=== PATIENT | male | born 1955 | race Caucasian/White ===

== ENCOUNTER 2018-09-08 05:24 | Day surgery (SDC) | payer OTHER ==
[~2018-09-08] VITALS: Ht 177.8 cm; Wt 94.5 kg
[2018-09-08 06:22] LABS: ANION GAP 11.3 mmol/L (8-16); CALCIUM 8.4 mg/dL (8.5-10.1); CARBON DIOXIDE 28.2 mmol/L (21.0-32.0); CREATININE - SERUM 1.8 mg/dL (0.6-1.3); POTASSIUM - SERUM 4.5 mmol/L (3.5-5.1)
[2018-09-08 06:42] LABS: HEMATOCRIT 41.7 % (42.0-54.0); HEMOGLOBIN 14.3 g/dL (13.5-17.5); LYMPHOCYTES 12.8 % (15-50); MCHC 34.3 g/dL (31.0-37.0); MCV 90.5 fL (80.0-100.0); MEAN PLATELET VOLUME 12.7 fL (7.4-10.4); NEUTROPHILS 80.8 % (40-80); PLATELET COUNT 132 10x3/uL (130-400); RBC 4.61 10x6/uL (4.20-6.10); RDW 17.3 % (11.5-14.5); WBC 4.7 10x3/uL (4.8-10.8)
[2018-09-08] MEDS ORDERED: ACETAMINOPHEN325 MG PO (07:17)
[2018-09-08] MEDS ORDERED: ADVAIR HFA 230-12 GM INH (07:18)
[2018-09-08] MEDS ORDERED: PACERONE200 MG PO (07:19)
[2018-09-08] MEDS ORDERED: ASPIRIN81 MG PO (07:19)
[2018-09-08] MEDS ORDERED: ALBUTEROL0.63 MG/3 INH (07:19)
[2018-09-08] MEDS ORDERED: PLAVIX75 MG PO (07:19)
[2018-09-08] MEDS ORDERED: LISINOPRIL20 MG PO (07:20)
[2018-09-08] MEDS ORDERED: COLACE100 MG PO (07:20)
[2018-09-08] MEDS ORDERED: LASIX40 MG PO (07:20)
[2018-09-08] MEDS ORDERED: GLUCOPHAGE500 MG PO (07:20)
[2018-09-08] MEDS ORDERED: SPIRIVA18 MCG INH (07:21)
[2018-09-08] MEDS ORDERED: FLOMAX0.4 MG PO (07:21)
[2018-09-08] MEDS ORDERED: EFFEXOR50 MG PO (07:21)
[2018-09-08] MEDS ORDERED: COUMADIN3 MG PO (07:21)
[2018-09-08] MEDS ORDERED: COUMADIN4 MG PO (07:22)
[2018-09-08 07:39] VITALS: BP 157/76; Ht 177.8 cm; Wt 94.5 kg
--- NOTE | 2018-09-08 11:18 | NUR ---
IV ERMOVED PT HAS A STOREY CATHETER
--- NOTE | 2018-09-11 11:23 | OP ---
PATIENT NAME: NATALIA BARLOW MEDICAL RECORD: [id number] :51 LOCATION:D.OPS ADMISSION DATE: SURGEON: HUMBERTO FREIRE MD DATE OF OPERATION: 09/08/2018 PREOPERATIVE DIAGNOSIS: Thickened esophagus by CT scan. POSTOPERATIVE DIAGNOSES: 1. 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 2. Diffuse (pangastritis) gastritis. 3. 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 4. No identifiable source for the thickening of the CT scan as seen back in July. PROCEDURES: 1. Esophagogastroduodenoscopy with biopsies. 2. Duodenal polypectomy utilizing the argon plasma quick sketch artist. SURGEON: Humberto Freire MD SLP: None. BLOOD LOSS: Minimal. ANESTHESIA: General. COMPLICATIONS: None. The risks, possible complications and alternatives to the procedure were explained to the patient. He elects to proceed. ENDOSCOPIC COURSE: The patient was conveyed to endoscopy suite electively on 09/08/2018. IV sedation was induced by the anesthesia staff. A bite block was inserted. A gastroscope was inserted into the mouth. It was advanced easily into the hypopharynx. The esophagus was easily intubated as were the stomach and duodenum. Upon withdrawal, retroflexed and angulus views were obtained. Antral biopsies were obtained. Distal esophageal biopsies were obtained to rule out Pitt's. Mid esophageal biopsies were obtained to rule out eosinophilic esophagitis. I then advanced into the duodenal bulb. Cold endoscopic biopsies were obtained of the duodenal bulbar polyp. I then ablated the polypoid base utilizing the argon plasma quick sketch artist with the esophageal mode in the forced setting. The endoscope was then withdrawn under direct vision. I noted no evidence of esophageal varices. No evidence of esophageal masses. The patient can be conveyed back to the residential. There is no need for him to follow up with me in the office unless he develops a complication related to this operative procedure. He can restart his anticoagulation in 2 days. I will plan for his next upper endoscopy to take place in 1 year due to the duodenal bulbar polyp. TRANSINT:[id number] Voice Confirmation ID: [id number] DOCUMENT ID: [id number] OPERATIVE REPORT [id number] NATALIA BARLOW ROBERT MD at 1123 CC: [id number] DICTATION DATE: 09/08/18 1006 VENDOR RELATIONSHIP MANAGER: 09/08/18 1109 [facility] 09/08/18 [facility] [address] [place] [address]
--- NOTE | 2018-09-11 15:02 | HP ---
PATIENT: NATALIA BARLOW MEDICAL RECORD: [id number] ACCOUNT: [id number] LOCATION:D.OPS : 51 ADMISSION DATE: 09/08/18 PCP: TRINITY CARRANZA MD HISTORY AND PHYSICAL EXAMINATION CHIEF COMPLAINT: Thickening of the esophageal wall. HISTORY OF PRESENT ILLNESS: The patient is on oxygen. He was found to have multiple medical problems and it was felt that his procedure should be done in the hospital or at the outpatient surgery center. The patient complains a lot of bloating as well as gas. A CT on 08/03/2018 revealed diffuse thickening of the wall of the esophagus. He is to undergo EGD to rule out an esophageal malignancy or Pitt's. PAST MEDICAL AND SURGICAL HISTORY: COPD. He is on 2 liters of oxygen, sleep apnea, hypertension, noninsulin-dependent diabetes mellitus, history of kidney infections, history of pilonidal cystectomy, history of coronary stents 6 months ago. HOME MEDICATIONS: Please see the nursing list. He has been off Plavix for 3 days. ALLERGIES: No known drug allergies. PHYSICAL EXAMINATION: GENERAL: The patient does not appear acutely ill. He does appear chronically ill. VITAL SIGNS: Reviewed. EARS: External ears appear normal. EYES: Extraocular movements are intact. NECK: Trachea is midline. CHEST: No intercostal retractions. PULMONARY: Nonlabored, no stridor. ABDOMEN: No peritonitis. IMPRESSION: Thickened esophageal wall by CT scan. PLAN: EGD. TRANSINT:[id number] Voice Confirmation ID: [id number] DOCUMENT ID: [id number] BLANK FREIRE MD at 1502 CC: DEREK RONQUILLO [id number] DICTATION DATE: 09/08/18 0927 DIRECTOR PART: 09/08/18 1001 [facility] 09/08/18 [facility] [address] [place] [address]
== END 2018-09-08 11:27 ==
LOC: D.OPS 05:24
PROVIDERS: Anesthesiology; ATTEND Surgery
DX: K22.8 Other specified diseases of esophagus (principal); K31.7 Polyp of stomach and duodenum; K29.70 Gastritis, unspecified, without bleeding; Z01.812 Encounter for preprocedural laboratory examination

== ENCOUNTER 2019-02-18 05:24 | Day surgery (SDC) | payer OTHER ==
[~2019-02-18] VITALS: Ht 177.8 cm; Wt 94.8 kg
[~2019-02-18 05:24] MED LIST: ACETAMINOPHEN325 MG PO; ADVAIR HFA 230-12 GM INH; ALBUTEROL0.63 MG/3 INH; ASPIRIN81 MG PO; COLACE100 MG PO; COUMADIN3 MG PO; COUMADIN4 MG PO; EFFEXOR50 MG PO; FLOMAX0.4 MG PO; GLUCOPHAGE500 MG PO; LASIX40 MG PO; LISINOPRIL20 MG PO; PACERONE200 MG PO; PLAVIX75 MG PO; SPIRIVA18 MCG INH
[2019-02-18 06:10] LABS: HEMATOCRIT 36.5 % (42.0-54.0); HEMOGLOBIN 11.4 g/dL (13.5-17.5); MCH 29.8 pg (26.0-34.0); MCHC 31.2 g/dL (31.0-37.0); MCV 95.5 fL (80.0-100.0); MEAN PLATELET VOLUME 9.3 fL (7.4-10.4); RBC 3.82 10x6/uL (4.20-6.10); RDW 14.8 % (11.5-14.5); WBC 7.5 10x3/uL (4.8-10.8)
[2019-02-18 06:15] LABS: ANION GAP 7.3 mmol/L (8-16); CALCIUM 8.3 mg/dL (8.5-10.1); CARBON DIOXIDE 37.3 mmol/L (21.0-32.0); CREATININE - SERUM 2.2 mg/dL (0.6-1.3); POTASSIUM - SERUM 3.6 mmol/L (3.5-5.1)
[2019-02-18 07:17] LABS: INR 0.99 (0.85-1.17); PROTIME 12.6 SECONDS (11.6-15.0)
[2019-02-18 07:47] VITALS: BP 145/75; Ht 177.8 cm; Wt 94.8 kg
--- NOTE | 2019-02-18 11:12 | OP ---
PATIENT NAME: NATALIA BARLOW MEDICAL RECORD: [id number] :51 LOCATION:D.OPS ADMISSION DATE: SURGEON: HUMBERTO VELÁZQUEZ MD DATE OF OPERATION: 02/18/2019 SURGEON: Humberto Velázquez MD ANESTHESIA: TIVA by Brian Pride CRNA PROCEDURE: Cystoscopy and bilateral retrograde pyelogram. FINDINGS: Obstructive lateral lobes of the prostate. Vascular prostate. Single ureteral orifices bilaterally with no bladder tumors. Bladder mucosal vascularity is noted. On bilateral retrograde pyelograms, there are no filling defects and no hydronephrosis. ESTIMATED BLOOD LOSS: None. CLINICAL HISTORY: This is a 63-year-old male, who is a prisoner. He is on warfarin for atrial fibrillation. He has noticed episodes of gross hematuria for the past 4 months. He does have obstructive voiding symptoms including urinary urgency, frequency, nocturia, hesitancy, and a slow urinary flow. He comes today for cystoscopy and bilateral retrograde pyelograms as part of his workup. He is not allergic to any medications. He was given Ancef watch dial stoner to the OR. DESCRIPTION OF PROCEDURE: The patient was given IV sedation. He was then placed into lithotomy position and prepped and draped. A 21-Israeli cystoscope with 30-degree lens was used for visualization. The lateral lobes are obstructive and the prostatic urethra is vascular. There is no median lobe. Going into the bladder, the bladder is vascular, but there are no tumors visible. An open-ended ureteral catheter was placed into the right ureteral orifice and diluted contrast was injected for a retrograde pyelogram. The same procedure was performed on the left side. No tumors, filling defects, or hydronephrosis was seen. The bladder was emptied through the sheath and then the scope was removed. He will be returning to snf and the results will be conveyed by the snf doctor. TRANSINT:[id number] Voice Confirmation ID: [id number] DOCUMENT ID: [id number] HUMBERTO VELÁZQUEZ MD at 1112 CC: [id number] DICTATION DATE: 02/18/19 0939 WARRANTY MANAGER: 02/18/19 1040 [facility] 02/18/19 [place] [address]
== END 2019-02-18 10:43 | disposition other institution (70) ==
LOC: D.OPS 05:24
PROVIDERS: Anesthesiology; ATTEND Urology
DX: N40.3 Nodular prostate with lower urinary tract symptoms (principal)

== ENCOUNTER 2019-06-03 09:59 | Inpatient (IN) | payer MEDICAID ==
[~2019-06-03] VITALS: Ht 177.8 cm; Wt 107.0 kg
[2019-06-03] VITALS (29 sets, daily range): BP systolic 96–125; BP diastolic 34–86; BMI 31.3
[2019-06-03 10:33] LABS: BASOPHILS 0.3 % (0-2); EOSINOPHILS 7.7 % (0-7); IMMATURE GRANULOCYTES 0.2 % (0-5); LYMPHOCYTES 18.9 % (15-50); MCH 26.4 pg (26.0-34.0); MCHC 29.4 g/dL (31.0-37.0); MCV 89.6 fL (80.0-100.0); MEAN PLATELET VOLUME 8.6 fL (7.4-10.4); MONOCYTES 9.1 % (2-11); NEUTROPHILS 63.8 % (40-80); RBC 2.01 10x6/uL (4.20-6.10); RDW 15.3 % (11.5-14.5); WBC 5.8 10x3/uL (4.8-10.8)
[2019-06-03 10:41] LABS: ANION GAP 13.4 mmol/L (8-16); CARBON DIOXIDE 27.6 mmol/L (21.0-32.0); CREATININE - SERUM 3.7 mg/dL (0.6-1.3); HEMOGLOBIN 5.3 g/dL (13.5-17.5); PLATELET COUNT 216 10x3/uL (130-400)
--- NOTE | 2019-06-03 10:41 | NUR ---
CRITICAL HEMOGLOBIN OF 5.3 RECEIVED FROM [facility]. REPORTED TO DR. NERI
[2019-06-03 10:42] LABS: APTT 44.5 SECONDS (22.8-39.4); INR 1.93 (0.85-1.17); PROTIME 21.8 SECONDS (11.6-15.0)
[2019-06-03 10:48] LABS: ALBUMIN 3.3 g/dL (3.4-5.0); BILIRUBIN - TOTAL 0.47 mg/dL (0.2-1.3); PROTEIN - SERUM 6.8 g/dL (6.4-8.2)
--- NOTE | 2019-06-03 11:42 | NUR ---
ROCEPHIN STOPPED AT 1142
--- NOTE | 2019-06-03 12:00 | NUR ---
UNIT OF A+ BLOOD STARTED. REFER TO INFUSION RECORD
--- NOTE | 2019-06-03 13:17 | NUR ---
ARRIVED TO UNIT AROUND 1247 VIA STRETCHER FROM ER. CONNECTED TO DAIRY PRODUCTS MAKER. UNIT OF BLOOOD INFUSING ON ARRIVAL. FINISHED AT 1310. 1314 2ND UNIT PRBC'S INITIATED. OFFICER AT BEDSIDE. PT ON 2L OF O2 VIA NC. WILL CONTINUE TO MONITOR.
--- NOTE | 2019-06-03 14:25 | NUR ---
UNIT OF FFP INITIATED AT THIS TIME.
[2019-06-03 15:48] LABS: HEMATOCRIT 22.7 % (42.0-54.0); HEMOGLOBIN 6.9 g/dL (13.5-17.5)
--- NOTE | 2019-06-03 15:58 | NUR ---
H&H REPORTED TO DR. JUDD. ORDERED 2 UNITS PRBC'S TO BE TRANSFUSED AND TO TRANSFUSE 2UNITS FFP THAT HAD PREVIOUSLY BEEN ORDERED.
--- NOTE | 2019-06-03 16:17 | NUR ---
2ND UNIT OF FFP INFUSING AT THIS TIME.
--- NOTE | 2019-06-03 16:34 | NUR ---
THIRD UNIT FFP INFUSING AT THIS TIME.
[2019-06-03 17:24] LABS: BILIRUBIN NEGATIVE (NEGATIVE); GLUCOSE NEGATIVE (NEGATIVE); KETONE NEGATIVE (NEGATIVE); NITRITE NEGATIVE (NEGATIVE); SPECIFIC GRAVITY 1.015 (1.005-1.020); UROBILINOGEN NORMAL (NORMAL); WHITE CELLS - URINE NSEEN /hpf (NEGATIVE)
--- NOTE | 2019-06-03 19:20 | MORECARE ---
CASE MANAGEMENT DISCHARGE SUMMARY PATIENT: NATALIA BARLOW UNIT: [id number] ADM DATE: 06/03/19 AGE: 63 : 53 SEX: M ROOM/BED: D.[facility] AUTHOR: LAVELL CORDOBA PHYSICIAN: REFERRING PHYSICIAN: LATANYA JUDD DO DATE OF SERVICE: 06/03/19 Discharge Plan Patient Name: NATALIA BARLOW [facility] [facility] 1955 Planned Disposition: Court\Law Enforcement Anticipated Discharge Date: Discharge Date: Expected LOS: Initial Reviewer: [email or web address] Initial Review Date: 06/03/2019 Generated: 06/03/19 8:19 pm Patient Name: NATALIA BARLOW Page [phone] at 1920 All edits/amendments must be made on the electronic document DICTATION DATE: 06/03/191918 OCCUPATIONAL PHYSICIAN: RUTHIE 06/03/191918 RPT#: [id number] DC DATE: STATUS: ADM IN [facility] [address] [place] [address] END OF REPORT
--- NOTE | 2019-06-03 19:26 | MORECARE ---
CASE MANAGEMENT DISCHARGE SUMMARY PATIENT: NATALIA BARLOW UNIT: [id number] ADM DATE: 06/03/19 AGE: 63 : 53 SEX: M ROOM/BED: D.[facility] AUTHOR: LAVELL CORDOBA PHYSICIAN: REFERRING PHYSICIAN: LATANYA JUDD DO DATE OF SERVICE: 06/03/19 Discharge Plan Patient Name: NATALIA BARLOW [facility] [facility] 1955 Planned Disposition: Court\Law Enforcement Anticipated Discharge Date: Discharge Date: Expected LOS: Initial Reviewer: [email or web address] Initial Review Date: 06/03/2019 Generated: 06/03/19 8:26 pm DCPIA - Discharge Planning Initial Assessment Updated by [email or web address]: Brianne Hanna on 06/03/19 7:21 pm * Is the patient Alert and Oriented? Yes * PCP [facility] * Pharmacy [facility] * Preadmission Environment Other * Other Environment [facility] - [facility] * Facility Name [facility] * ADLs Independent * Verbal permission to speak to the caregivers and representatives has been obtained from the patient. N/A * Community resources currently utilized None * Additional services required to return to the preadmission environment? No * Can the patient safely return to the preadmission environment? Yes * Has this patient been hospitalized within the prior 30 days at any hospital? No Last DP export: 06/03/19 6:20 p Patient Name: NATALIA BARLOW Page [phone] at 1926 All edits/amendments must be made on the electronic document DICTATION DATE: 06/03/191925 BACK JOINER: RUTHIE 06/03/191925 RPT#: [id number] DC DATE: STATUS: ADM IN [facility] [address] [place] [address] END OF REPORT
--- NOTE | 2019-06-03 19:33 | MORECARE ---
CASE MANAGEMENT DISCHARGE SUMMARY PATIENT: NATALIA BARLOW UNIT: [id number] ADM DATE: 06/03/19 AGE: 63 : 53 SEX: M ROOM/BED: D.[facility] AUTHOR: LAVELL CORDOBA PHYSICIAN: REFERRING PHYSICIAN: LATANYA JUDD DO DATE OF SERVICE: 06/03/19 Discharge Plan Patient Name: NATALIA BARLOW Facility: [facility]:[place] : 1955 Planned Disposition: Court\Law Enforcement Anticipated Discharge Date: Discharge Date: Expected LOS: Initial Reviewer: [email or web address] Initial Review Date: 06/03/2019 Generated: 06/03/19 8:33 pm Comments DCP- Discharge Planning Updated by [email or web address]: Brianne Hanna on 06/03/19 6:[address] Patient Name: NATALIA BARLOW Admission Status: ER Accout number: [id number] Admission Date: 06-03-2019 : 1955 Admission Diagnosis: Attending: LATANYA JUDD Current LOS: 1 Anticipated DC Date: Planned Disposition: Court\Law Enforcement Primary Insurance: [place] [employer] Discharge Planning Comments: PATIENT WILL BE RELEASED BACK TO [facility] WHEN DISCHARGED. GUARD AT BEDSIDE CONTINUALLY. Card Grinder Helper: Brianne Hanna DCPIA - Discharge Planning Initial Assessment Updated by [email or web address]: Brianne Hanna on 06/03/19 7:21 pm * Is the patient Alert and Oriented? Yes * PCP [facility] * Pharmacy [facility] * Preadmission Environment Other * Other Environment [facility] - [facility] * Facility Name [facility] * ADLs Independent * Verbal permission to speak to the caregivers and representatives has been obtained from the patient. N/A * Community resources currently utilized None * Additional services required to return to the preadmission environment? No * Can the patient safely return to the preadmission environment? Yes * Has this patient been hospitalized within the prior 30 days at any hospital? No Last DP export: 06/03/19 6:26 p Patient Name: NATALIA BARLOW Page [phone] at 1933 All edits/amendments must be made on the electronic document DICTATION DATE: 06/03/191932 GATE TENDER: RUTHIE 06/03/191932 RPT#: [id number] DC DATE: STATUS: ADM IN [facility] [address] [place] [address] END OF REPORT
--- NOTE | 2019-06-03 19:40 | NUR ---
REPORT REC'D AND CARE ASSUMED, REC'D PT RESTING EYES CLOSED IN BED, O2 @ 2 LITERS VIA NC, PT AWAKENS EASILY AND IS ORIENTED X 4, RIGHT A/C PIV WITH PROTONIX @ 10CC/HR, LEFT FOREARM PIV WITH PRBC INFUSING, CM-SB, BP STABLE, STOERY PATENT DRAINING CLEAR YELLOW URINE, PPP, PT SHACKLED TO BED, GUARD AT BS, SR UP X 2, CALL LIGHT IN REACH.
--- NOTE | 2019-06-03 20:00 | NUR ---
DR. FREIRE AT BS SPEAKING WITH PATIENT, ORDERS REC'D
--- NOTE | 2019-06-03 21:13 | NUR ---
PT RESTING EYES CLOSED UPON ENTERING ROOM, AWAKENED PT TO TAKE EVENING MEDS, PT TOOK MEDS WITHOUT DIFFICULTY, ENCOURAGED PT TO DRINK MAG CITRATED ORDERED, MAG CITRATED PLACED OVER ICE, PT ATTEMPTING TO DRINK AT THIS TIME.
--- NOTE | 2019-06-03 21:30 | NUR ---
PT STATES "THIS IS NOT NEAR BAD I THOUGHT", BS 75 AKBAR PROVIDED FOR PT, CONTINUING TO ENCOURAGE PATIENT TO FINISH CUP OF MAG CITIRATED, VERBALIZES UNDERSTANDING.
--- NOTE | 2019-06-03 21:40 | NUR ---
CONSENT OBTAINED FOR EGD/COLONOSCOPY BY DR. FREIRE IN AM, PT FINISHED MAG CITRATE WITHOUT DIFFICULTY, PT REPOSITIONED UP IN BED AND PARTIAL LINEN CHANGE PROVIDED, PT DENIES FURTHER NEEDS, GUARD REMAINS IN ROOM.
--- NOTE | 2019-06-03 23:14 | NUR ---
REASSESSMENT COMPLETED, PT REPOSITIONED IN BED, LAB AT FOR TIMED DRAW, PT DENIES NEEDS, WILL MONITOR FOR CHANGES.
[2019-06-03 23:27] LABS: HEMOGLOBIN 8.6 g/dL (13.5-17.5)
[2019-06-03 23:31] LABS: ANION GAP 13.1 mmol/L (8-16); CALCIUM 7.8 mg/dL (8.5-10.1); CARBON DIOXIDE 27.5 mmol/L (21.0-32.0); CREATININE - SERUM 3.8 mg/dL (0.6-1.3); POTASSIUM - SERUM 4.6 mmol/L (3.5-5.1)
[2019-06-04] VITALS (49 sets, daily range): BP systolic 81–121; BP diastolic 25–66; BMI 32.2
--- NOTE | 2019-06-04 00:20 | NUR ---
PT SITTING UP ON SIDE OF BED PULLING AT LINES, STOREY CATHETER COLLECTION BAG ON OPPOSITE SIDE OF BED, PT STATES " I CANNOT SLEEP ON MY BACK", SITTING ON SIDE OF BED, COMPLAINING OF "NEEDING TO PEE", STOREY MOVED TO SIDE OF BED WITH PT, LINENS ADJUSTED, PT ASSISTED TO REPOSITION UP HIGHER IN BED, GUARD AT BS ASSISTING, PT COMPLAINS OF DRY MOUTH, EXPLAINED PT WAS NPO FOR PROCEDURE IN THE MORNING, LEMON GLYCERIN SWABS PROVIDED, PT ASSISTED BACK TO BED, SR UP X 2, GUARD AT BS.
--- NOTE | 2019-06-04 02:00 | NUR ---
PT RESTING IN BED EYES CLOSED, RESP EVEN AND UNLABORED, VSS, CM-SB AT TIMES, WILL MONITOR CLOSELY FOR CHANGES.
--- NOTE | 2019-06-04 03:30 | NUR ---
PT AWAKE, REQUESTING BEDPAN, PLACED ON BEDPAN, CALL LIGHT IN REACH.
--- NOTE | 2019-06-04 05:15 | NUR ---
LAB AT BS, PT'S RIGHT A/C PIV PULLED PARTIALLY OUT, CATH DC'D AND PRESSURE HELD.
--- NOTE | 2019-06-04 05:30 | NUR ---
COMPLETE CHG BATH AND LINEN CHANGE PROVIDED, PT TOLERATED WELL, REPOSITIONED SELF, LEMON GLYCERIN SWAB PROVIDED FOR MOUTH, WARM BLANKET PROVIDED, GUARD REMAINS AT BS.
[2019-06-04 06:07] LABS: BASOPHILS 0.2 % (0-2); EOSINOPHILS 6.7 % (0-7); HEMATOCRIT 26.8 % (42.0-54.0); HEMOGLOBIN 8.2 g/dL (13.5-17.5); IMMATURE GRANULOCYTES 0.2 % (0-5); LYMPHOCYTES 10.5 % (15-50); MCH 27.2 pg (26.0-34.0); MCHC 30.6 g/dL (31.0-37.0); MEAN PLATELET VOLUME 9.3 fL (7.4-10.4); NEUTROPHILS 76.4 % (40-80); PLATELET COUNT 207 10x3/uL (130-400); RDW 15.6 % (11.5-14.5); WBC 6.4 10x3/uL (4.8-10.8)
[2019-06-04 06:16] LABS: RBC 3.01 10x6/uL (4.20-6.10)
[2019-06-04 06:20] LABS: ALBUMIN 3.4 g/dL (3.4-5.0); ANION GAP 11.7 mmol/L (8-16); BILIRUBIN - TOTAL 0.56 mg/dL (0.2-1.3); CALCIUM 7.8 mg/dL (8.5-10.1); CARBON DIOXIDE 26.9 mmol/L (21.0-32.0); CREATININE - SERUM 3.7 mg/dL (0.6-1.3); POTASSIUM - SERUM 4.6 mmol/L (3.5-5.1); PROTEIN - SERUM 6.9 g/dL (6.4-8.2)
--- NOTE | 2019-06-04 07:00 | NUR ---
RECEIVED BEDSIDE REPORT ON PATIENT AND ASSUMED CARE. PATIENT RESTING QUIETLY, GUARD AT BEDSIDE. EASILY AROUSED BY VOICE, VSS. BBS - CLEAR AND EQUAL ON 2 LPM VIA NC WITH SPO2 - 94%. CM - SB RATE OF 55 NO ECTOPY NOTED. STOREY CATH IN PLACE WITH 230 ML OF UOP NOTED. IV 18 GA TO LEFT FA WITH NS AT 75 ML/HR AND PROTONIX AT 8 MG/HR (10 ML/HR) INFUSING. NO S/S OF INFILTRATION NOTED. HEAD TO TOE ASSESSMENT COMPLETED.
--- NOTE | 2019-06-04 09:00 | NUR ---
PATIENT RESTING QUIETLY, EYES CLOSED. GUARD AT BEDSIDE, VSS.
--- NOTE | 2019-06-04 11:00 | NUR ---
REASSESSMENT COMPLETED. PATIENT LETHARGIC POST PROCEDURE, BP IN 80S SYSTOLIC. O2 AT 4 LPM WITH SPO2 LOW 90S.
--- NOTE | 2019-06-04 11:11 | NUR ---
SPOKE TO DR. JUDD REGARDING PATIENTS BP POST PROCEDURE AND MORNIGN H AND H, ADVISED TO GIVE A 500 CC NS FLUID BOLUS AND TO ALSO TRANSFUSE 1 UNIT PRBCS. ORDER PLACED.
--- NOTE | 2019-06-04 11:30 | NUR ---
NS BOLUS 50 CC STARTED INFUSING.
--- NOTE | 2019-06-04 12:00 | NUR ---
NS BOLUS COMPLETED.
--- NOTE | 2019-06-04 12:04 | NUR ---
IV 18 GA TO LEFT AC STARTED FOR BLOOD ADMINSTRATION X 1 ATTEMPT, POSITIVE BLOOD RETURN AND EASILY FLUSHES. / UNIT PRBC STARTED INFUSING.
--- NOTE | 2019-06-04 13:35 | NUR ---
1/1 UNITS OF PRBC'S INFUSION COMPLETED. VSS. NO S/S OF TRANSFUSION REACTION.
--- NOTE | 2019-06-04 14:01 | NUR ---
LAB AT ROOM TO DRAW H AND H.
[2019-06-04 14:05] LABS: HEMATOCRIT 29.5 % (42.0-54.0)
--- NOTE | 2019-06-04 14:38 | NUR ---
PATIENT BACK TO BED PER REQUEST.
--- NOTE | 2019-06-04 15:11 | NUR ---
REASSESSMENT COMPLETED. VSS.
--- NOTE | 2019-06-04 15:18 | NUR ---
DR. ALEXANDRA AT ROOM UPDATED AND EXAMINES PATIENT. TO START CARAFATE BID.
--- NOTE | 2019-06-04 16:40 | NUR ---
PATIENT PLACED ON BEDPAN. DINNER TRAY PROVIDED TO PATIENT AND GUARD.
--- NOTE | 2019-06-04 17:01 | NUR ---
DR. VELAZCO AT ROOM UPDATED AND EXAMINES PATIENT. PATIENT ONLY PASSED GAS NO BM. TAKEN OFF BEDPAN. GIVEN MEDS PER MAR AND DINNER TRAY.
--- NOTE | 2019-06-04 19:35 | NUR ---
PT RESTING IN BED EYES CLOSED, O2 @ 2 LITERS VIA NC, AWAWKENS TO VERBAL STIMULI, ORIENTED X 4, LEFT A/C PIV SALINE LOCKED, LEFT FORERARM PIV NS @ 75CC/HR AND PROTONIX @ 10CC/HR, MAEE, GENERALIZED SCABS/SORES NOTED TO ARMS, TORSO AND LEGS, PT STATES " I ITCH SOMETIMES", STOREY PATENT DRAINING CLEAR YELLOW URINE, PPP, BED IN LOW POSITION, CALL LIGHT IN REACH.
--- NOTE | 2019-06-04 20:00 | NUR ---
PT'S O2 SAT DECREASED TO 85%, PT AWAKENED AND DEEP BREATHING AND COUGHING DONE, O2 SAT SLOWLY RETURNED TO 92%, WILL MONITOR CLOSELY FOR CHANGES.
--- NOTE | 2019-06-04 20:10 | NUR ---
PT'S PULSE OX CONTINUES TO DROP WHILE SLEEPING, O2 INCREASED TO 4LITERS AT THIS TIME.
--- NOTE | 2019-06-04 20:15 | NUR ---
PT REPOSITIONED UP IN BED FOR COMFORT, O2 INCREASED TO 5LITERS, COUGHING AND DEEP BREATHING DONE, PT COMPLAINS OF BEING COLD, WARM BLANKET PROVIDED, SR UP X 2 ,CALL LIGHT IN REACH.
--- NOTE | 2019-06-04 21:00 | NUR ---
EVENING MEDS GIVEN ORDERED, PT TOLERATED WELL, GUARD AT BS, PT DENIES FURTHER NEEDS.
[2019-06-04 21:58] LABS: HEMATOCRIT 29.9 % (42.0-54.0); HEMOGLOBIN 9.1 g/dL (13.5-17.5)
--- NOTE | 2019-06-04 23:15 | NUR ---
PT COMPLAINS OF SHOOTING PAIN IN KNUCKLES AND FINGERS OF LEFT HAND, WARM BLANKET PROVIDED, WILL CONTINUE TO MONITOR FOR CHANGES.
[2019-06-05] VITALS (24 sets, daily range): BP systolic 90–138; BP diastolic 33–62
--- NOTE | 2019-06-05 01:30 | NUR ---
PT REPOSITIONED IN BED FOR COMFORT, REQUESTING WATER AND ICE, BOTH PROVIDED AT THIS TIME, VSS, GUARD REMAINS IN ROOM, CALL LIGHT IN REACH.
--- NOTE | 2019-06-05 03:30 | NUR ---
PT RESTING ON RIGHT SIDE SUPPORTED WITH PILLOWS, RESP EVEN AND UNLABORED, NO CHANGES FROM PREVIOUS ASSESSMENT, SR UP X 2, BED IN LOW POSITION, CALL LIGHT IN REACH.
--- NOTE | 2019-06-05 05:00 | NUR ---
PT RESTING EYES CLOSED, RESP EVEN AND UNLABORED, VSS, WILL CONT TO MONITOR.
--- NOTE | 2019-06-05 06:00 | NUR ---
AM MEDS GIVEN, PT DENIES NEEDS, SR UP X 2, BED IN LOW POSITION, CALL LIGHT IN REACH.
--- NOTE | 2019-06-05 07:30 | NUR ---
AWAKES EASILY TO VERBAL STIMULI. SKIN WARM AND DRY. MULTIPLE OPEN AREAS ON ARMS, SOME BLEEDING. IV LEFT FOREARM WITHOUT REDNESS OR SWELLING INFUSING WITH NS AT 75 ML HOUR. STOREY CATH PATENT. MONITOR SR. STATES HIS ABD HIS HURTING HIM. OXYGEN AT 4 LITERS PER HIGH FLOW NC.
--- NOTE | 2019-06-05 08:00 | NUR ---
CLEAR LIQUID DIET SERVED ATE 100%
--- NOTE | 2019-06-05 10:00 | NUR ---
COMPLETE HIBCLENS BATH GIVEN WITH STOREY CATH CARE. UP IN CHAIR AT BEDSIDE. PATIENT CAN STAND AND PIVOT TO GET INTO CHAIR. STATES HE IS IN A WHEEL CHAIR, BUT GOES TO THE BATHROOM PER WHEELCHAIR. NO SKIN BREAKDOWN NOTED.
--- NOTE | 2019-06-05 12:00 | NUR ---
STILL UP IN CHAIR AT BEDSIDE. CLEAR LIQUID DIET SERVED. ATE JELLO AND CHICKEN BROTH
--- NOTE | 2019-06-05 14:00 | NUR ---
SITTING UP IN CHAIR WATCHING TV. NO DISTRESS. STOREY CATH PATENT. IV LEFT FOREARM INFUSING WITH PROTONIX AT 8 MG HOUR AND NS AT 75 ML HOUR. NO REDNESS OR SWELLING AT SITE.
--- NOTE | 2019-06-05 14:38 | NUR ---
AMBULATED TO BED, GAIT UNSTEADY. PATIENT TOLERATED WELL.
[2019-06-05 15:13] LABS: BASOPHILS 0.3 % (0-2); EOSINOPHILS 12.3 % (0-7); HEMATOCRIT 32.5 % (42.0-54.0); HEMOGLOBIN 9.7 g/dL (13.5-17.5); IMMATURE GRANULOCYTES 0.3 % (0-5); LYMPHOCYTES 11.5 % (15-50); MCH 27.2 pg (26.0-34.0); MCHC 29.8 g/dL (31.0-37.0); MEAN PLATELET VOLUME 8.7 fL (7.4-10.4); MONOCYTES 7.7 % (2-11); NEUTROPHILS 67.9 % (40-80); PLATELET COUNT 180 10x3/uL (130-400); RBC 3.57 10x6/uL (4.20-6.10); RDW 16.2 % (11.5-14.5); WBC 5.8 10x3/uL (4.8-10.8)
[2019-06-05 15:35] LABS: ANION GAP 10.2 mmol/L (8-16); CALCIUM 7.6 mg/dL (8.5-10.1); CARBON DIOXIDE 29.6 mmol/L (21.0-32.0); CREATININE - SERUM 2.8 mg/dL (0.6-1.3); POTASSIUM - SERUM 4.8 mmol/L (3.5-5.1)
--- NOTE | 2019-06-05 16:00 | NUR ---
UP TO BS. LARGE SOFT BROWN FORMED BM. UNSTEADY WHEN STANDING. RETURNED TO BED
--- NOTE | 2019-06-05 17:14 | NUR ---
CLEAR LIQUID DIET SERVED.
--- NOTE | 2019-06-05 19:30 | NUR ---
REPORT REC'D AND CARE ASSUMED, PT RESTING IN BED WATCHING TV, O2 @ 5LITERS VIA NC, LEFT FOREARM PIV NS @ 75CC/HR AND PROTONIX @ 10CC/HR, LEFT A/C PIV SALINE LOCKED, MULTIPLE AREAS TO BILAT ARMS AND TORSO OF SCABBED AREAS, PT STATES "THEY ITCH ME AND I SCRATCH", STOREY PATENT DRAINING CONCENTRATED URINE, PPP, BILAT SCDS INTACT, PT DENIES PAIN OR NEEDS, GUARD AT BS, SR UP X 2 ,CALL LIGHT IN REACH.
--- NOTE | 2019-06-05 20:00 | NUR ---
PT STATES HE IS HUNGRY, BEEF BROTH AND JELLO PROVIDED, NO FURTHER NEEDS VOICED.
--- NOTE | 2019-06-05 21:00 | NUR ---
EVENING MEDS GIVEN ORDERED, PT DENIES NEEDS.
--- NOTE | 2019-06-05 23:00 | NUR ---
REASSESSMENT COMPLETED, EKG LEADS AND DIRECT MAIL MANAGER CABLE EXCHANGED DUE TO MONITOR READING ASYSTOLE, PT SR @ 67, BP STABLE, GUARD REMAINS IN ROOM.
[2019-06-06] VITALS (22 sets, daily range): BP systolic 97–142; BP diastolic 36–76
--- NOTE | 2019-06-06 01:30 | NUR ---
NO CHANGES IN STATUS
--- NOTE | 2019-06-06 03:30 | NUR ---
REASSESSMENT COMPLETED, PT DOZING AT INTERVALS, PT PULLS AT LEADS AND BP CUFF, BOTH REAPPLIED AND PT INSTRUCTED TO LEAVE THEM ON, WILL CONT TO MONITOR FOR CHANGES.
[2019-06-06 06:06] LABS: BASOPHILS 0.2 % (0-2); EOSINOPHILS 12.3 % (0-7); HEMATOCRIT 31.8 % (42.0-54.0); HEMOGLOBIN 9.6 g/dL (13.5-17.5); IMMATURE GRANULOCYTES 0.2 % (0-5); LYMPHOCYTES 9.4 % (15-50); MCH 27.5 pg (26.0-34.0); MCHC 30.2 g/dL (31.0-37.0); MCV 91.1 fL (80.0-100.0); MEAN PLATELET VOLUME 9.1 fL (7.4-10.4); MONOCYTES 9.4 % (2-11); NEUTROPHILS 68.5 % (40-80); PLATELET COUNT 198 10x3/uL (130-400); RBC 3.49 10x6/uL (4.20-6.10); RDW 16.3 % (11.5-14.5)
[2019-06-06 06:21] LABS: ANION GAP 9.3 mmol/L (8-16); CALCIUM 7.7 mg/dL (8.5-10.1); CARBON DIOXIDE 28.6 mmol/L (21.0-32.0); CREATININE - SERUM 2.5 mg/dL (0.6-1.3); POTASSIUM - SERUM 4.9 mmol/L (3.5-5.1)
[2019-06-06 06:39] LABS: WBC 8.4 10x3/uL (4.8-10.8)
--- NOTE | 2019-06-06 07:15 | NUR ---
AWAKES AND ALERT UP IN CHAIR AT BEDSIDE. SKIN WARM AND DRY. STOREY CATH PATENT AND DRAINING CLEAR DENEEN URINE. IV LEFT FOREARM INFUSING WITH NS AT 75 ML HOUR ANDPROTONIX AT 8 MG HOUR.
--- NOTE | 2019-06-06 08:00 | NUR ---
CLEAR LIQUID BREAKFAST SERVED.
--- NOTE | 2019-06-06 09:00 | NUR ---
up in chair at bedside. po meds taken
--- NOTE | 2019-06-06 10:00 | NUR ---
PO MEDS GIVEN TO START PREP FOR COLONSCOPY. PATIENT UP IN CHAIR NO DISTRESS
--- NOTE | 2019-06-06 11:30 | NUR ---
GO LYTELY PREP STARTED.
--- NOTE | 2019-06-06 13:00 | NUR ---
PATIENT CONTINUES TO DRINK GOLYTELY PREP 2-3 GLASS AN HOUR. NO BM YET
--- NOTE | 2019-06-06 15:00 | NUR ---
CONTINUES TO DRINK GO LYTELY OVER HALF OF CONTAINER CONSUMED. HAS BEEN ON BSC A COUPLE OF TIMES WITHOUT RESULTS. DENIES NEED TO HAVE BM. IV'S SALINE LOCKED.
--- NOTE | 2019-06-06 16:45 | NUR ---
DR. ZACARIAS NOTIFIED OF NAUSEA, PATIENT HAS NOT HAD A BM YET AND HAS DRANK 3/4 OF GOLYTELY. ORDERS FOR ZOFRAN RECEIVED AND GIVEN. 25ML OF D50W GIVEN FOR ACCUCHECK OF 57. GOOD BLOOD RETURN FROM IV IN LEFT FOREARM. WILL HOLD OFF ON GOLYTE UNTIL NAUSEA BETTER
--- NOTE | 2019-06-06 17:21 | NUR ---
STATES NAUSEA IS BETTER, NOT READY TO RESTART GOLYTELY ACCUCHECK 90.
--- NOTE | 2019-06-06 18:24 | NUR ---
PATIENT SLEEPING ON LEFT SIDE RESP DEEP AND REGULAR NO DISTRESS.
--- NOTE | 2019-06-06 19:00 | NUR ---
PT ASSESSMENT COMPLETED AT THIS TIME, NO CHANGES NOTED FROM NURSE REPORT, PT RESTING WITH EYES CLOSED RESP EVEN AND NON-LABORED, PT AWAKES TO NAME, PT DENIES COMPLAINTS AT THIS TIME, VSS, WILL MONITOR FOR CHANGES
--- NOTE | 2019-06-06 21:00 | NUR ---
pt's fsbs was 72, pt resting with eyes closed, pt has to pt stimulated to awake up to his name very loudly, pt given 2100 meds with apple juice to give additional glucose at this time, will monitor blood sugar and watch for changes
--- NOTE | 2019-06-06 23:00 | NUR ---
PT REASSESSMENT COMPLETED AT THIS TIME, PT WAS FOUND TO BE MORE LETHARGIC AND HARD TO AROUSE, WILL CHECK BLOOD GLUCOSE TO EVALUATE BLOOD SUGAR, AND NOTIFY ONCALL
[2019-06-07] VITALS (28 sets, daily range): BP systolic 87–140; BP diastolic 36–73
--- NOTE | 2019-06-07 | NUR ---
PT WAS GIVEN CHG BATH DUE TO NEEDING CLEANED FROM LOOSE BROWN STOOL. PT STILL LETHARGIC, WILL GET ABG'S AND CALL
--- NOTE | 2019-06-07 00:07 | NUR ---
DR. ZACARIAS CALLED ORDER TO PT PT ON BIPAP GIVEN
--- NOTE | 2019-06-07 01:00 | NUR ---
PT RESTING ON BIPAP, PT STILL LETHARGIC RESPONDING TO PAINFUL STIMULATION AT THIS TIME, VSS, WILL MONITOR FOR CHANGES
--- NOTE | 2019-06-07 03:00 | NUR ---
PT REASSESSMENT COMPLETED AT THIS TIME, PT STILL LETHARGIC, PT RESPONDS TO PAINFUL STIMULI, VSS, BIPAP INPLACE, WILL MONITOR FOR CHANGES
[2019-06-07 04:49] LABS: BASOPHILS 0.1 % (0-2); EOSINOPHILS 7.8 % (0-7); HEMATOCRIT 33.5 % (42.0-54.0); HEMOGLOBIN 9.7 g/dL (13.5-17.5); IMMATURE GRANULOCYTES 1.9 % (0-5); LYMPHOCYTES 7.8 % (15-50); MEAN PLATELET VOLUME 8.8 fL (7.4-10.4); NEUTROPHILS 75.4 % (40-80); PLATELET COUNT 180 10x3/uL (130-400); RBC 3.59 10x6/uL (4.20-6.10); RDW 16.4 % (11.5-14.5); WBC 7.4 10x3/uL (4.8-10.8)
--- NOTE | 2019-06-07 04:50 | NUR ---
CALLED DR. ZACARIAS WITH ABG RESULTS, ORDER GIVEN TO CALL ANESTHESIA TO COME IN AND INTUBATE THE PATIENT.
[2019-06-07 04:52] LABS: MCV 93.3 fL (80.0-100.0)
[2019-06-07 04:58] LABS: ANION GAP 8.6 mmol/L (8-16); CALCIUM 7.4 mg/dL (8.5-10.1); CARBON DIOXIDE 30.6 mmol/L (21.0-32.0); CREATININE - SERUM 2.1 mg/dL (0.6-1.3); POTASSIUM - SERUM 5.2 mmol/L (3.5-5.1)
--- NOTE | 2019-06-07 05:40 | NUR ---
DISPLAY DIRECTOR HERE FOR INTUBATION
--- NOTE | 2019-06-07 05:45 | NUR ---
PT INTUBATED BY ATOMIC PROCESS ENGINEER, OGT PLACED AND CONFIRMED VIA AUSCULTATION, AND ASPIRATION OF STOMACH CONTENTS. BILATERAL SOFT WRIST RESTRAINTS PLACED
--- NOTE | 2019-06-07 06:16 | NUR ---
DR. ZACARIAS CALLED ABOUT HR, AND B/P, ORDERS TO CHANGE TO FENTANYL FOR SEDATION GIVEN
--- NOTE | 2019-06-07 14:14 | NUR ---
Nutrition Follow-up: Intubated this AM. KUB with NSBGP. Wt: 219.3# (06/07); 225# (06/04) Last BM: 06/07 per chart Labs noted: K+ 5.2, Ca 7.4 Meds noted: Fentanyl, Diprivan, Protonix, Carafate, Humulin -If pt remains intubated, rec initiate nutrition support with 24-48 hrs if medically feasible. -Monitor wt. -RD following.
--- NOTE | 2019-06-07 17:15 | NUR ---
DR. FREIRE NOTIFIED ABOUT NO BM NEW ORDERS RECIEVED FOR MG CITRATE. PT POSITIONED FOR COMFORT WILL CONTINUE TO MONITOR.
--- NOTE | 2019-06-07 19:00 | NUR ---
PT ASSESSMENT COMPLETED AT THIS TIME, PT SEDATED ON VENT SUPPORT, VSS, ADC GAHAILEY AT BEDSIDE, NO CHANGES NOTED FROM NURSE REPORT, WILL MONITOR FOR CHANGES
--- NOTE | 2019-06-07 21:00 | NUR ---
pt sedated on vent, vss, no changes noted, will monitor for changes
--- NOTE | 2019-06-07 23:00 | NUR ---
PT REASSESSMENT COMPLETED AT THIS TIME, NO CHANGES NOTED FROM PREVIOUS EXAM, PT'S B/P IS TRENDING LOWER, WILL MONITOR AND START LEVOPHED NEEDED.
[2019-06-08] VITALS (86 sets, daily range): BP systolic 89–127; BP diastolic 27–89
--- NOTE | 2019-06-08 01:00 | NUR ---
PT CAUSING HIGH PEAK ALARMS, INCREASED SEDATION, VSS, WILL MONITOR FOR CHANGES
--- NOTE | 2019-06-08 03:00 | NUR ---
PT REASSESSMENT COMPLETED AT THIS TIME, PT REASETING ON VENT SUPPORT, BOWEL SOUNDS ARE INCREASED, ABD IS STILL DISTENDED. VSS, WEANING OFF LEVOPHED.
[2019-06-08 04:58] LABS: BASOPHILS 0.5 % (0-2); EOSINOPHILS 13.8 % (0-7); HEMATOCRIT 30.7 % (42.0-54.0); HEMOGLOBIN 9.3 g/dL (13.5-17.5); IMMATURE GRANULOCYTES 0.2 % (0-5); LYMPHOCYTES 8.9 % (15-50); MCH 27.1 pg (26.0-34.0); MCHC 30.3 g/dL (31.0-37.0); MEAN PLATELET VOLUME 8.8 fL (7.4-10.4); MONOCYTES 9.7 % (2-11); NEUTROPHILS 66.9 % (40-80); RBC 3.43 10x6/uL (4.20-6.10); RDW 16.4 % (11.5-14.5)
[2019-06-08 05:01] LABS: MCV 89.5 fL (80.0-100.0); PLATELET COUNT 218 10x3/uL (130-400); WBC 10.6 10x3/uL (4.8-10.8)
[2019-06-08 05:08] LABS: ANION GAP 11.3 mmol/L (8-16); CALCIUM 7.5 mg/dL (8.5-10.1); CARBON DIOXIDE 29.4 mmol/L (21.0-32.0); CREATININE - SERUM 2.4 mg/dL (0.6-1.3); POTASSIUM - SERUM 4.7 mmol/L (3.5-5.1)
--- NOTE | 2019-06-08 05:30 | NUR ---
PT GIVEN CHG BATH THIS MORNING AND LINENS CHANGED, STILL NO RESULTS IN FECAL DRAINAGE SYSTEM, SYSTEM FLUSHED WITH BROWN WATER NOTED IN TUBE
--- NOTE | 2019-06-08 08:52 | NUR ---
0700 PT RECIEVED SEDATED ON VENT ETT SECURED OGT IN PLACE PER AUSCULTATION, LFA LAC PIV SEE IV FLOWSHEET, RECTAL TUBE DRAINING, STOREY DRAINING YELLOW URINE, REPOSITIONED, GUARD AT BEDSIDE 0845 AM MEDS GIVEN, HR 55 HOLDING AMIO UNTIL VERIFIED WITH
[2019-06-08 10:27] LABS: INR 1.44 (0.85-1.17); PROTIME 17.4 SECONDS (11.6-15.0)
--- NOTE | 2019-06-08 18:11 | NUR ---
PT REPOSITIONED WITH ORAL CARE EVERY 2 HOURS THROUGHOUT DAY, VSS, NO SIGNS OF PAIN, GUARD REMAINS AT BEDSIDE
--- NOTE | 2019-06-08 22:48 | NUR ---
190 ASSESSMENT DONE SEE FLOW SHEET. VSS. LARGE AMOUNT OF GREEN NASAL DISCHARGE NOTED. 1999 DR FREIRE AT BEDSIDE ORDERS RECEIVED. 2100 MED GIVEN PER JUN. VSS. LARGE AMOUNTS OF GREEN SPUTUM NOTED. 2248 REASSESSMENT DONE SEE FLOW SHEET VSS WILL CONTINUE TO MONITOR. LARGE AMOUNTS OF GREEN SPUTUM NOTED.
[2019-06-09] VITALS (17 sets, daily range): BP systolic 102–144; BP diastolic 33–70
[2019-06-09 06:51] LABS: BASOPHILS 0.2 % (0-2); EOSINOPHILS 10.9 % (0-7); HEMATOCRIT 31.7 % (42.0-54.0); HEMOGLOBIN 9.4 g/dL (13.5-17.5); IMMATURE GRANULOCYTES 0.3 % (0-5); LYMPHOCYTES 10.1 % (15-50); MCH 26.9 pg (26.0-34.0); MCHC 29.7 g/dL (31.0-37.0); MCV 90.6 fL (80.0-100.0); MEAN PLATELET VOLUME 9.1 fL (7.4-10.4); MONOCYTES 9.5 % (2-11); PLATELET COUNT 203 10x3/uL (130-400); RDW 16.6 % (11.5-14.5); WBC 10.7 10x3/uL (4.8-10.8)
[2019-06-09 07:04] LABS: ANION GAP 11.4 mmol/L (8-16); CALCIUM 7.8 mg/dL (8.5-10.1); CARBON DIOXIDE 28.5 mmol/L (21.0-32.0); CREATININE - SERUM 2.4 mg/dL (0.6-1.3); POTASSIUM - SERUM 4.9 mmol/L (3.5-5.1)
--- NOTE | 2019-06-09 09:54 | NUR ---
0700 PT RECIEVED SEDATED, ETT SECURED, VSS, NGT LIS GREEN DRAINAGE, VERIFIED PLACEMENT WITH AUSCULTATION, LAC PFA PIV PATENT, DRESSING CDI, RECTAL TUBE PATENT, STOREY DRAINING YELLOW URINE, GUARD AT BEDSIDE, SEE SHIFT ASSESSMENT FOR DETAILS 0900 AM MEDS GIVEN, NEW ORDERS PER DR PÉREZ, WILL COTNINUE TO MONITOR
--- NOTE | 2019-06-09 12:02 | NUR ---
PT TO CT AND TRANSFER TO 2303. REPORT GIVEN TO EPI
--- NOTE | 2019-06-09 13:33 | NUR ---
Nutrition Follow-up: Remains intubated. Still being prepped for colonoscopy; noted Reglan added. NGT LIS. No nutrition support; per Dr. Fuentes, TF decision per surgery after colonoscopy. Wt: 241# (06/09); 219.3# (06/07); 218# (06/03) Labs noted: Ca 7.8 Meds noted: Reglan, D5NS @ 50, Protonix, Carafate -NPO since intubation 06/07. Rec initiate nutrition support when medically feasible. -Monitor wt. -RD following.
--- NOTE | 2019-06-09 13:36 | NUR ---
PT RESTING IN BED. GUARD AT BEDSIDE. WILL CONTINUE TO MONITOR
--- NOTE | 2019-06-09 13:42 | NUR ---
SPOKE WITH DR PÉREZ ABOUT PT. UPDATE GIVEN.
--- NOTE | 2019-06-09 16:12 | NUR ---
TRIED CALLING DR PARKS'S OFFICE. REACHED HIS NURSE, RUBIN. TOLD HER ABOUT PHYSICIAN CONSULT AND LEFT ICU NUMBER FOR A CALL BACK.
--- NOTE | 2019-06-09 16:15 | NUR ---
DR PARKS CALLED BACK. STATED SINUSITIS IS NORMAL IN ICU PATIENTS AND SAID HE WILL NOT COME SEE THE PATIENT UNLESS THERE IS SOMETHING MORE. DID NOT RECOGNIZE DR PÉREZ'S NAME.
[2019-06-09 17:36] LABS: ALBUMIN 2.9 g/dL (3.4-5.0); ANION GAP 9.2 mmol/L (8-16); BILIRUBIN - TOTAL 0.8 mg/dL (0.2-1.3); CALCIUM 7.6 mg/dL (8.5-10.1); CARBON DIOXIDE 30.5 mmol/L (21.0-32.0); CREATININE - SERUM 2.5 mg/dL (0.6-1.3); POTASSIUM - SERUM 4.7 mmol/L (3.5-5.1); PROTEIN - SERUM 6.5 g/dL (6.4-8.2)
--- NOTE | 2019-06-09 18:40 | NUR ---
DR PÉREZ CALLED ABOUT CONSULTING DR PARKS. UPDATE GIVEN.
--- NOTE | 2019-06-09 19:00 | NUR ---
Report received from off going nurse. Pt is resting in bed intubated and sedated. Pt repositioned for comfort. Oral care performed. No s/s of distress noted. Will continue to monitor.
--- NOTE | 2019-06-09 21:00 | NUR ---
Pt is resting in bed intubated and sedated. Repositioned for comfort. Oral care performed. No s/s of distress noted. Will continue to monitor.
--- NOTE | 2019-06-09 23:00 | NUR ---
Reassessment completed, see flowsheet for details. Pt is resting in bed with eyes closed intubated and sedated at this time. Repositioned for comfort. Oral care performed. No further needs noted. Guard at bedside still. No s/s of distress noted. Will continue to monitor.
[2019-06-10] VITALS (24 sets, daily range): BP systolic 129–177; BP diastolic 59–85
--- NOTE | 2019-06-10 01:00 | NUR ---
Pt is laying in bed intubated and sedated. Repositioned for comfort. Oral care performed. No s/s of distress noted. Will continue to monitor.
--- NOTE | 2019-06-10 03:00 | NUR ---
Reassessment completed, see flowsheet for details. Pt is laying in bed intubated and sedated. Repositioned for comfort. Oral care performed. No further needs noted. No s/s of distress noted. Will continue to monitor.
[2019-06-10 05:05] LABS: BASOPHILS 0.1 % (0-2); EOSINOPHILS 2.2 % (0-7); HEMATOCRIT 31.8 % (42.0-54.0); HEMOGLOBIN 9.4 g/dL (13.5-17.5); IMMATURE GRANULOCYTES 0.3 % (0-5); LYMPHOCYTES 3.9 % (15-50); MCH 26.6 pg (26.0-34.0); MCHC 29.6 g/dL (31.0-37.0); MCV 90.1 fL (80.0-100.0); MEAN PLATELET VOLUME 9.2 fL (7.4-10.4); MONOCYTES 4.4 % (2-11); NEUTROPHILS 89.1 % (40-80); PLATELET COUNT 201 10x3/uL (130-400); RBC 3.53 10x6/uL (4.20-6.10); RDW 16.4 % (11.5-14.5); WBC 12.6 10x3/uL (4.8-10.8)
[2019-06-10 05:14] LABS: ANION GAP 12.9 mmol/L (8-16); CALCIUM 7.9 mg/dL (8.5-10.1); CARBON DIOXIDE 27.8 mmol/L (21.0-32.0); CREATININE - SERUM 2.6 mg/dL (0.6-1.3); POTASSIUM - SERUM 4.7 mmol/L (3.5-5.1); VANCOMYCIN - RANDOM 10.3 ug/mL (10.0-20.0)
--- NOTE | 2019-06-10 07:00 | NUR ---
REC'D REPORT AND RESUMED CARE, ETT TO VENT AND SECURED, FIO2 40: SAT 97%, OGT TO LIWS, GREEN DRAINAGE TO CANNISTER, LEFT AC AND LEFT FA PIV WITH IVF PER FLOWSHEET, B/L WRIST RESTRAINTS IN US, STOREY TO GRAVITY, AND RECTAL TUBE IN PLACE, GUARD AT BEDSIDE, SEDATION IN USE, OPENS EYES TO SPEECH AND FOLLOWS COMMANDS, ASSESSMENT COMPLTED PER FLOWSHEET, VSS WILL CONTINUE WITH POC
--- NOTE | 2019-06-10 09:10 | NUR ---
PS TRIAL 01/16
--- NOTE | 2019-06-10 09:30 | NUR ---
MORNING MEDS GIVEN, PO MEDS EXCLUDED, PT NPO FOR PENDING COLONOSCOPY
--- NOTE | 2019-06-10 11:00 | NUR ---
CONTINUE ON VENT WITH 40% FIO2, VSS, NO ACUTE CHANGE FROM PREVIOU ASSESSMENT
--- NOTE | 2019-06-10 14:15 | NUR ---
PC TO GI LAB RE: TIMEING FOR COLONOSCOPY SPOKE WITH RAVIN RN, PER MOUNA NOT PLANNING TO COMPLETE TODAY BEUT WILL EVAL PATIENT LATER TO DAY TO SEE IF IT IS STILL SOMETHING THAT NEEDS GO BE COMPLETED
--- NOTE | 2019-06-10 15:00 | NUR ---
REPORT GIVEN TO EUGENE FONG
--- NOTE | 2019-06-10 15:05 | NUR ---
REPORT TAKEN FROM Juventino RODRIGUEZ RN. PATIENT CARE ASSUMED AT THIS TIME.
--- NOTE | 2019-06-10 17:20 | OP ---
PATIENT NAME: NATALIA BARLOW MEDICAL RECORD: [id number] :51 LOCATION:D.ICU D.2303 ADMISSION DATE:06/03/19 SURGEON: BLANK FREIRE MD DATE OF OPERATION: 06/04/2019 PREOPERATIVE DIAGNOSIS: 1. Gastrointestinal bleeding. 2. Acute blood loss anemia requiring transfusions. POSTOPERATIVE DIAGNOSES: 1. Gastrointestinal bleeding. 2. Acute blood loss anemia requiring transfusions. 3. Severe esophagitis involving the second and third portions of the esophagus. 4. Residual food material within the esophagus. 5. Severe hemorrhagic esophagitis. 6. Questionable distal esophageal malignancy. 7. Flecks of blood within the stomach. 8. Moderate gastritis involving the fundus of the stomach. 9. Gastric polyp, which appear to be adenomatous. 10. Normal duodenum. 11. Large amount of solid fecal material within the rectum, which was going to make for a nondiagnostic examination. 12. Right inferior prostate nodule. PROCEDURES: 1. Esophagogastroduodenoscopy with antral biopsies. 2. Gastric hot biopsy forceps polypectomy. 3. Aborted colonoscopy. SURGEON: Blank Freire MD POULTRY SLAUGHTERER: None. BLOOD LOSS: 10 cc. ANESTHESIA: IV sedation. COMPLICATIONS: None. The risks, possible complications and alternatives to the procedure were explained to the patient. He elects to proceed. The discussion specifically included, but was not limited to, bleeding requiring emergency reoperation, infection, and endoscopic perforation. OPERATIVE COURSE: The patient was seen in his ICU Room. IV sedation was induced by the anesthesia staff. A bite block was inserted. A gastroscope was inserted into the mouth. It advanced easily into the hypopharynx. The esophagus was easily intubated as were the stomach and duodenum. Upon withdrawal, retroflexed and angulus views were obtained. Cold endoscopic biopsies were obtained. At these sites, I then grasped them with the hot biopsy and cauterized them as the patient is on Eliquis and is going to have tendency to bleed. I noted the polyp, which was on the posterior wall of the stomach and it appeared to be adenomatous, it was within the antrum. Cold endoscopic biopsies were performed and this removed most of the polyp. I then grasped the area that was bleeding after the polypectomy and cauterized this with the hot OPERATIVE REPORT [id number] YENNATALIA biopsy forceps. A retroflexed view was obtained and I did not notice any mass at the EG junction. However, upon withdrawal of the endoscope, there appeared to be a ridge of the indurated tissue. I did not biopsy this for fear that it would lead to bleeding from the Eliquis. The endoscope was then withdrawn under direct vision. The patient was turned 180 degrees and placed in the [place] position. A digital rectal examination was performed. A colonoscope was inserted through the anus. It was advanced to the mid rectum and then I aborted the colonoscopy. I have informed Dr. Latanya Judd of the endoscopic findings. We are going to plan to prep the patient over the weekend and perform a colonoscopy on Friday. Certainly, the hemorrhagic esophagitis, the gastritis, and his adenomatous polyp, could account for the patient's drop in hematocrit and blood loss anemia requiring transfusions. TRANSINT:[id number] Voice Confirmation ID: [id number] DOCUMENT ID: [id number] BLANK FREIRE MD at 1720 CC: LATANYA JUDD DO, TK ALEXANDRA and DEREK RONQUILLO [id number] DICTATION DATE: 06/04/19 1350 DELIVERY AND INSTALLATION SUBCONTRACTOR: 06/04/19 2351 ADM IN [facility] [address] [place] [address]
--- NOTE | 2019-06-10 17:50 | NUR ---
PATIENT APPEARS TO BE RESTING COMFORTABLY WITH EYES CLOSED. NO OBVIOUS SIGNS OF DISTRESS NOTED. VSS. WILL CONTINUE TO MONITOR. GUARD REMAINS AT BEDSIDE.
[2019-06-11] VITALS (25 sets, daily range): BP systolic 107–161; BP diastolic 49–75
--- NOTE | 2019-06-11 06:27 | NUR ---
Nutrition follow-up: Pt NPO for colonoscopy today Labs reviewed RDN following.
--- NOTE | 2019-06-11 07:00 | NUR ---
PT RESTING IN BED, ETT SECURED, DOMINIC WRIST RESTRAINTS IN PLACE. BED ALARM ON. RECTAL TUBE AND STOREY NOTED. GAURD AT BEDSIDE. NO SIGNS OF DISTRESS NOTED. WILL CONT TO FOLLOW POC
--- NOTE | 2019-06-11 09:00 | NUR ---
PT RESTING IN BED, ETT SECURED. VSS AND WNL. BED ALARM ON. GAURD AT BEDSIDE, NO SIGNS OF DISTRESS NOTED. WILL CONT TO FOLLOW POC
[2019-06-11 09:10] LABS: BASOPHILS 0.2 % (0-2); EOSINOPHILS 8.2 % (0-7); HEMATOCRIT 35.3 % (42.0-54.0); HEMOGLOBIN 10.6 g/dL (13.5-17.5); IMMATURE GRANULOCYTES 0.3 % (0-5); LYMPHOCYTES 6.4 % (15-50); MCH 26.8 pg (26.0-34.0); MCV 89.1 fL (80.0-100.0); MEAN PLATELET VOLUME 9.8 fL (7.4-10.4); NEUTROPHILS 78.9 % (40-80); RBC 3.96 10x6/uL (4.20-6.10); RDW 16.6 % (11.5-14.5)
[2019-06-11 09:11] LABS: PLATELET COUNT 150 10x3/uL (130-400); WBC 16.6 10x3/uL (4.8-10.8)
[2019-06-11 09:32] LABS: ANION GAP 15.7 mmol/L (8-16); CARBON DIOXIDE 27.6 mmol/L (21.0-32.0); CREATININE - SERUM 2.3 mg/dL (0.6-1.3); VANCOMYCIN - RANDOM 15.6 ug/mL (10.0-20.0)
[2019-06-11 10:16] LABS: POTASSIUM - SERUM 5.3 mmol/L (3.5-5.1)
--- NOTE | 2019-06-11 11:00 | NUR ---
CONSENT OBTAINED FROM PT MOM WITH SECOND NURSE WITNESS FOR COLONOSCOPY BY .
--- NOTE | 2019-06-11 13:00 | NUR ---
PT RESTING IN BED, VSS AND WNL. ETT SECURED. NO SIGNS OF DISRESS NOTED, WILL CONT TO FOLLOW POC
--- NOTE | 2019-06-11 15:00 | NUR ---
PT RESTING IN BED, GAURD AT BEDSIDE, VSS AND WNL, ETT SECURED. PT REPOSITIONED. BED ALARM ON, WILL CONT TO FOLLOW POC
--- NOTE | 2019-06-11 15:03 | OP ---
PATIENT NAME: NATALIA BARLOW MEDICAL RECORD: [id number] :51 LOCATION:.[facility] D.2303 ADMISSION DATE:06/03/19 SURGEON: HUMBERTO FREIRE MD DATE OF OPERATION: 06/11/2019 PREOPERATIVE DIAGNOSIS: Gastrointestinal bleeding. POSTOPERATIVE DIAGNOSES: 1. Gastrointestinal bleeding. 2. Inadequate colon prep. PROCEDURE: Aborted colonoscopy. SURGEON: Humberto Freire MD TESTER FOOD PRODUCTS: None. ESTIMATED BLOOD LOSS: Zero. ANESTHESIA: IV sedation per the anesthesia staff. OPERATIVE COURSE: The patient is currently being mechanically ventilated and is sedated. The patient had previously given consent for a colonoscopy. He is unable to give consent now. In fact, there is no one who is able to give written consent. The patient was seen in his ICU bed. IV sedation was induced by the anesthesia staff. The patient was positioned in the [place] position. A digital rectal examination was performed. A colonoscope was inserted through the anus. It was advanced to the splenic flexure. I really could not advance it any further due to the very poor colon prep. I then slowly withdrew the endoscope. The procedure was terminated. I am going to plan to have the nursing staff reinsert the rectal tube and keep prepping the patient and hopefully we can try another colonoscopy on Friday. Today is Friday. TRANSINT:[id number] Voice Confirmation ID: [id number] DOCUMENT ID: [id number] HUMBERTO FREIRE MD at 1503 CC: [id number] DICTATION DATE: 06/11/19 1207 RESTROOMS OR LOUNGES MAID: 06/11/19 1433 ADM IN [facility] [address] [place] [address]
--- NOTE | 2019-06-11 17:00 | NUR ---
PT REPOSITIONED. VSS AND WNL. NOTIFIED CLARITZA RENAL [employer] STEAMER OF [place] TO PT BACK. NEW ORDER RECIEVED TO HOLD [facility]. PHARMACY NOTIFIED. NO SIGNS OF DISTRESS NOTED. WILL CONT TO FOLLOW POC
--- NOTE | 2019-06-11 19:00 | NUR ---
ASSESSMENT COMPLETED. CONT ETT AT 40%. OGT PLACEMENT CHECKED. REPOSITIONED
--- NOTE | 2019-06-11 21:00 | NUR ---
REPOSTIIONED AND ORAL CARE PROVIDED.
--- NOTE | 2019-06-11 21:30 | NUR ---
PATIENT IS AWAKE, PULLING AT RESTRAINTS, TRYING TO BITE TUBE, AND TRYING TO REACH FOR TUBE. RETIED RESTRAINTS AND INCREASED SEDATION PER ORDERS.
--- NOTE | 2019-06-11 23:00 | NUR ---
RE-ASSESSMENT COMPLETED. NO CHANGES SINCE LAST ASSESSMENT. PATIENT EYES CLOSED, WAKES EASILY TO FOLLOW COMMANDS BUT ISN'T TRYING TO LOOSEN RESTRAINTS
[2019-06-12] VITALS (24 sets, daily range): BP systolic 97–152; BP diastolic 42–72
--- NOTE | 2019-06-12 01:00 | NUR ---
REPOSITIONED, ORAL CARE PROVIDED.
--- NOTE | 2019-06-12 03:00 | NUR ---
RE-ASSESSMENT COMPLETED. NO CHANGES SINCE LAST ASSESSMENT
--- NOTE | 2019-06-12 05:00 | NUR ---
REPOSITIONED AND ORAL CARE PROVIDED
--- NOTE | 2019-06-12 07:00 | NUR ---
BEDSIDE REPORT RECEIVED. SHIFT ASSESSMENT COMPLETED PER FLOWSHEET, SEE FLOWSHEET FOR INFORMATION. NO ACUTE NEEDS OR DISTRESS NOTED AT THIS TIME. VSS. WILL CONT TO MONITOR.
--- NOTE | 2019-06-12 09:00 | NUR ---
REPOSITIONED PER COMFORT. ORAL AND INLINE SUCTIONED. WILL CONT TO MONITOR.
[2019-06-12 09:21] LABS: ANION GAP 11.1 mmol/L (8-16); CALCIUM 8.1 mg/dL (8.5-10.1); CARBON DIOXIDE 31.6 mmol/L (21.0-32.0); CREATININE - SERUM 2.7 mg/dL (0.6-1.3); VANCOMYCIN - RANDOM 12.2 ug/mL (10.0-20.0)
[2019-06-12 09:27] LABS: POTASSIUM - SERUM 3.7 mmol/L (3.5-5.1)
--- NOTE | 2019-06-12 11:00 | NUR ---
REASSESSMENT COMPLETED PER FLOWSHEET, SEE FLOWSHEET FOR INFORMATION. CHG BEDBATH GIVEN. COMPLETE LINEN CHANGE. LARGE LIQUID BM NOTED WITH RECTAL TUBE IN PLACE, REPOSITIONED RECTAL TUBE, OUTPUT NOTED. WILL CONT TO MONITOR.
--- NOTE | 2019-06-12 13:00 | NUR ---
COMPLETE BEDBATH GIVEN, RECTAL TUBE IN PLACE, LARGE LIQUID BM NOTED AROUND RECTAL TUBE. WILL CONT TO MONITOR.
--- NOTE | 2019-06-12 15:00 | NUR ---
REASSESSMENT COMPLETED PER FLOWSHEET, SEE FLOWSHEET FOR INFORMATION. NO ACUTE NEEDS OR DISTRESS NOTED AT THIS TIME.
--- NOTE | 2019-06-12 17:00 | NUR ---
COMPLETE LINEN CHANGE COMPLETED. NEW IV ACCESS ESTABLISHED. WILL CONT TO MONITOR.
--- NOTE | 2019-06-12 19:00 | NUR ---
ASSESSMENT COMPLETED. REPOSITIONED, ORAL CARE PROVIDED. EYES OPEN, FOLLOWS COMMANDS.
--- NOTE | 2019-06-12 21:00 | NUR ---
REPOSITIONED AND ORAL CARE PROVIDED. LARGE LOOSE BM NOTED. HALF IN RECTAL TUBE.
--- NOTE | 2019-06-12 23:00 | NUR ---
RE-ASSESSMENT COMPLETED. NO CHANGES SINCE LAST ASSESSMENT
[2019-06-13] VITALS (24 sets, daily range): BP systolic 101–164; BP diastolic 48–92
--- NOTE | 2019-06-13 01:00 | NUR ---
REPOSITIONED AND ORAL CARE PROVIDED.
--- NOTE | 2019-06-13 03:00 | NUR ---
RE-ASSESSMENT COMPLETED. NO CHANGES SINCE LAST ASSESSMENT
--- NOTE | 2019-06-13 05:00 | NUR ---
REPOSITIONED. ORAL CARE PROVIDED. AWAKE. FOLLOWING COMMANDS. COMMUNICATING WITH NURSE. DENIES ANY PAIN
--- NOTE | 2019-06-13 07:00 | NUR ---
BEDSIDE REPORT RECEIVED. SHIFT ASSESSMENT COMPLETED PER FLOWSHEET, SEE FLOWSHEET FOR INFORMATION. UPON ASSESSMENT LARGE LIQUID BM NOTED, COMPLETE BED BATH GIVEN WITH COMPLETE LINEN CHANGE. VSS. WILL CONT TO MONITOR.
--- NOTE | 2019-06-13 08:15 | NUR ---
ON SEDATION VACATION FOR PRESSURE TRIAL. WILL CONT TO MONITOR.
--- NOTE | 2019-06-13 09:00 | NUR ---
PT RESTING IN BED WITH EYES CLOSED. 0900 MEDICATIONS GIVEN, PT TOLERATING PRESSURE SUPPORT TRIALS WELL. NO ACUTE NEEDS OR DISTRESS NOTED AT THIS TIME. WILL CONT TO MONITOR.
--- NOTE | 2019-06-13 11:00 | NUR ---
REASSESSMENT COMPLETED PER FLOWSHEET, SEE FLOWSHEET FOR INFORMATION. COMPLETE BED LINEN CHANGE AND CHG BEDBTH GIVEN. NO ACUTE NEEDS OR DISTRESS NOTED AT THIS TIME. VSS. WILL CONT TO MONITOR.
--- NOTE | 2019-06-13 13:00 | NUR ---
REPOSITIONED RECTAL TUBE, LARGE LIQUID BM NOTED. WILL CONT TO MONITOR.
--- NOTE | 2019-06-13 15:00 | NUR ---
REASSESSMENT COMPLETED PER FLOWSHEET, SEE FLOWSHEET FOR INFORMATION. FAILED TWO PRESSURE SUPPORT TRIALS TODAY. FIRST TRIAL LASTED HOUR AND A HALF, SECOND TRIAL LASTED ALMOST 30 MINUTES. BOTH TRIALS ENDED DUE TO OXYGEN DESATURATION INTO THE HIGH 80'S. WILL CONT TO MONITOR.
--- NOTE | 2019-06-13 17:00 | NUR ---
PT REPOSTIONED PER COMFORT. NO ACUTE NEEDS OR DISTRESS NOTED AT THIS TIME. WILL CONT TO MONITOR.
--- NOTE | 2019-06-13 19:00 | NUR ---
ASSESSMENT COMPLETED. AWAKE. COMMUNICATING WITH NURSE VIA GESTURES. REPOSITIONED. ORAL CARE PROVIDED
--- NOTE | 2019-06-13 21:00 | NUR ---
REPOSITIONED, ORAL CARE PROVIDED. DENIES ANY NEEDS
--- NOTE | 2019-06-13 23:00 | NUR ---
RE-ASSESSMENT COMPLETED. REPOSITIONED, ORAL CARE PROVIDED.
[2019-06-14] VITALS (23 sets, daily range): BP systolic 121–169; BP diastolic 61–96
--- NOTE | 2019-06-14 01:15 | NUR ---
REPOSITIONED. PATIENT KEEPS TRYING TO TALK AND COMMUNICATE. ANSWERING ALL HIS QUESTIONS, BUT ALSO EDUCATING TO RELAX AND NOT WORK SO HARD. PATIENT C/O ITCHING ALL OVER. PATIENT REQUESTING FOOD, WATER, ICE CHIPS. TRYING TO COUGH UP TUBE. PRN VERSED GIVEN.
--- NOTE | 2019-06-14 03:00 | NUR ---
RE-ASSESSMENT COMPLETED. NO CHANGES SINCE LAST ASSESSMENT. REPOSITIONED, ORAL CARE PROVIDED
[2019-06-14 04:48] LABS: BASOPHILS 0.1 % (0-2); EOSINOPHILS 0 % (0-7); HEMATOCRIT 33.3 % (42.0-54.0); HEMOGLOBIN 10.4 g/dL (13.5-17.5); LYMPHOCYTES 5.1 % (15-50); MCH 26.7 pg (26.0-34.0); MCHC 31.2 g/dL (31.0-37.0); MCV 85.6 fL (80.0-100.0); MEAN PLATELET VOLUME 9.9 fL (7.4-10.4); MONOCYTES 1.3 % (2-11); NEUTROPHILS 92.5 % (40-80); PLATELET COUNT 165 10x3/uL (130-400); RBC 3.89 10x6/uL (4.20-6.10); RDW 16.3 % (11.5-14.5); WBC 14.6 10x3/uL (4.8-10.8)
--- NOTE | 2019-06-14 05:00 | NUR ---
REPOSITIONED. ORAL CARE PROVIDED. PATIENT CONT TO TALK OVER VENT AND GAGGING.
[2019-06-14 05:48] LABS: ALBUMIN 2.5 g/dL (3.4-5.0); ANION GAP 15.9 mmol/L (8-16); BILIRUBIN - TOTAL 0.87 mg/dL (0.2-1.3); CALCIUM 7.8 mg/dL (8.5-10.1); CREATININE - SERUM 2.6 mg/dL (0.6-1.3); POTASSIUM - SERUM 3.9 mmol/L (3.5-5.1); PROTEIN - SERUM 6.1 g/dL (6.4-8.2); VANCOMYCIN - RANDOM 6.2 ug/mL (10.0-20.0)
--- NOTE | 2019-06-14 10:00 | NUR ---
0700 ASSESSMENT COMPLETE IN BED BREATHING ON VENT NO INDICATION OF PAIN REPOSITIONED IN BED ORAL CARE PROVIDED RELEASED AND REAPPPLIED DOMINIC WRIST RESTRAINTS GUARD SEATED AT BEDSIDE
--- NOTE | 2019-06-14 10:03 | NUR ---
0900 CONSENTS PRINTED FOR CVL AND COLONOSCOPY DR WARREN CALLED TO VERIFY PATIENTS NAME REPOSITIONED IN BED ORAL CARE COMPLETE
--- NOTE | 2019-06-14 10:22 | NUR ---
1022 PHONE CONSENT SIGNED PER GEN BARLOW, MOTHER.
--- NOTE | 2019-06-14 11:00 | NUR ---
1100 REPOSITIONED IN BED ORAL CARE PROVIDED NO INDICATION OF PAIN
--- NOTE | 2019-06-14 11:30 | NUR ---
113 DR FRANCOIS CHANGED VENT SETTING TO 30% 02
--- NOTE | 2019-06-14 12:27 | NUR ---
Nutrition follow-up: Pt remains NPO for colonoscopy Pt has been NPO x 11 days! Recommend starting ProcalAmine PPN @ 100 ml/hr due to pt with no nutrition x 11 days (since admit). Pt is now assessed with severe malnutrition of acute illness R/T GI bleed AEB: 1. < 50% intake of estimated energy needs for > 5 days 2. Measurably reduced community relations advisor strength 2/2 intubation at this time. RDN following.
--- NOTE | 2019-06-14 13:00 | NUR ---
1300 REPOSITIONED IN BED RESTING QUIETLY
--- NOTE | 2019-06-14 15:00 | NUR ---
1500 DR GARRETT, ANESTHESIA WAITING ON SONOSITE WHICH IS BEING USED BY DR FARIAS
--- NOTE | 2019-06-14 16:30 | NUR ---
2485 DR GARRETT PLACING DIFFICULT CENTAL LINE
--- NOTE | 2019-06-14 17:05 | NUR ---
1705 FABIAN FARIAS AND MOUNA AT BEDSIDE WITH DR GARRETT COMPLETING CENTRAL LINE PLACEMENT.
--- NOTE | 2019-06-14 17:50 | NUR ---
1750 PLACEMENT OF CENTRAL LINE VERIFIED FOR USE BY RADIOLOGIST COMPLETE LINEN CHANGE DONE
[2019-06-15] VITALS (24 sets, daily range): BP systolic 115–189; BP diastolic 59–98
[2019-06-15 04:58] LABS: BASOPHILS 0.1 % (0-2); EOSINOPHILS 0 % (0-7); HEMATOCRIT 31.6 % (42.0-54.0); HEMOGLOBIN 9.7 g/dL (13.5-17.5); IMMATURE GRANULOCYTES 0.7 % (0-5); LYMPHOCYTES 3.2 % (15-50); MCH 26.6 pg (26.0-34.0); MCHC 30.7 g/dL (31.0-37.0); MCV 86.8 fL (80.0-100.0); MEAN PLATELET VOLUME 9.4 fL (7.4-10.4); MONOCYTES 2.4 % (2-11); NEUTROPHILS 93.6 % (40-80); RBC 3.64 10x6/uL (4.20-6.10); RDW 16.1 % (11.5-14.5); WBC 14.9 10x3/uL (4.8-10.8)
[2019-06-15 05:04] LABS: ANION GAP 11.5 mmol/L (8-16); CALCIUM 8.3 mg/dL (8.5-10.1); CARBON DIOXIDE 32.1 mmol/L (21.0-32.0); CREATININE - SERUM 2.5 mg/dL (0.6-1.3); POTASSIUM - SERUM 3.6 mmol/L (3.5-5.1)
[2019-06-15 05:09] LABS: PLATELET COUNT 199 10x3/uL (130-400)
--- NOTE | 2019-06-15 12:39 | NUR ---
8358 DR GARRETT PLACING CENTRAL WITH DIFFICULTY
--- NOTE | 2019-06-15 17:04 | NUR ---
0800 REPORT RECIEVED AND CARE ASSUMED OF PATIENT... SEE FLOW SHEET FOR ASSESMENT FINDINGS.. PT IS AWAKE AND VERY APPROPRIATE WITH RESPONSES.. PT IS ADC WITH MORRO AT THE BEDSIDE.. SOFT WRIST RESTRAINTS ARE ON.. 0900 COMPLETE CHG BATH AND LINEN CHANGE DONE... RASH IS STILL ON PATIENTS BODY AND PT IS ITCHING SELF.. THERE ARE SCRATCH MORENO ON PATIENTS BODY WHERE HE HAS ITCHED SELF.. 929 DR KRISHNAN IN TO PT UPDATE IS GIVEN.. 944 BENADRY IV GIVEN FOR ITCHING.. 1015 DR FRANCOIS IN TO SEE PT.. UPDATE IS GIVEN.. DR FRANCOIS DROPPED O2 TO 30% AND RESPPIRATIONS TO 12 AT THIS TIME.. 1030 PT SLEEPING AT THIS TIME 1130 PT SUDDENLY AWAKE AND RESTLESS O2 SAT HAS DROPPED TO 78% 1200 DR FRANCOIS INFORMED OF PT CURRENT CONDITION.. VERESED ORDERED AND O2 INCREASED TO 50% RATE 20 2 MG VERSED GIVEN. AND A BOLUS OF FENTANYLL 200MCG GIVEN.. PT SETTLED DOWN AFTER MEDS GIVEN.. 1430 GI LAB IN TO DO COLONOSCOPY AT BEDSIDE.. 1530 [address]ONOSCOPY COMPLETE... DR FREIRE REMOVED RECTAL TUBE DURING COLONOSCOPY PT IS RESTING COMFORTABLY ON LEFT SIDE.. CONTINUES ON VENT WITH FENTANYLL INFUSING AT 400 MCG 1630 PT REMAINS SEDATED ON LEFT SIDE SLEEPING GAURD AT BEDSIDE.. O2 CONTINUES AT 50% WITH RESP AT 20
--- NOTE | 2019-06-15 18:25 | NUR ---
1815 WITHOUT CHANGES IN PT STATUS AT THIS TIME..
[2019-06-16] VITALS (19 sets, daily range): BP systolic 111–150; BP diastolic 22–83
[2019-06-16 05:52] LABS: BASOPHILS 0 % (0-2); EOSINOPHILS 1.5 % (0-7); HEMATOCRIT 30.2 % (42.0-54.0); HEMOGLOBIN 9.1 g/dL (13.5-17.5); IMMATURE GRANULOCYTES 0.5 % (0-5); LYMPHOCYTES 9.7 % (15-50); MCH 26.4 pg (26.0-34.0); MCHC 30.1 g/dL (31.0-37.0); MCV 87.5 fL (80.0-100.0); MEAN PLATELET VOLUME 9.1 fL (7.4-10.4); MONOCYTES 7.9 % (2-11); NEUTROPHILS 80.4 % (40-80); PLATELET COUNT 173 10x3/uL (130-400); RBC 3.45 10x6/uL (4.20-6.10); RDW 16.2 % (11.5-14.5)
[2019-06-16 05:56] LABS: WBC 10.3 10x3/uL (4.8-10.8)
[2019-06-16 06:19] LABS: ALBUMIN 2.5 g/dL (3.4-5.0); BILIRUBIN - DIRECT 0.32 mg/dL (0.00-0.30); BILIRUBIN - INDIRECT 0.39 mg/dL (0.00-1.00); BILIRUBIN - TOTAL 0.71 mg/dL (0.2-1.3); CALCIUM 7.8 mg/dL (8.5-10.1); CARBON DIOXIDE 33.2 mmol/L (21.0-32.0); CREATININE - SERUM 2.6 mg/dL (0.6-1.3); MAGNESIUM - SERUM 2.4 mg/dL (1.8-2.4); PHOSPHOROUS 3.6 mg/dL (2.5-4.9); POTASSIUM - SERUM 3.2 mmol/L (3.5-5.1); URIC ACID 8.2 mg/dL (2.6-7.2)
--- NOTE | 2019-06-16 07:10 | NUR ---
PT VENT ALARMING. UPON ASSESSMENT, ETT WAS NO LONGER IN PLACE AND HANGING OUT OF PT MOUTH AND OGT WAS SITTING ON PT CHEST. NURSE CALLED FOR RT ASSISTANCE. NURSE BEGAN BAGGING PT. WAS NOTIFIED AND NEW ORDER RECIEVED TO PLACE PT ON HI-ADRIENNE NC AND CHECK ABG IN 30MINS. PT PLACED ON 9L HI-ADRIENNE. PT IS ALERT AND FOLLOWING COMMANDS. PT IS BREATHING WITHOUT COMMANDS. WILL CONT TO FOLLOW POC
--- NOTE | 2019-06-16 09:21 | NUR ---
Nutrition follow-up: Pt self-extubated this am. BIPAP in place at this time Continues NPO Colonoscopy aborted 3/3 Pt has been without nutrition support x 14 days Pt with severe malnutrition and needs nutrition support started. RDN following.
--- NOTE | 2019-06-16 10:00 | NUR ---
PT RESTING IN BED, VSS AND WNL. PT ALERT AND ANSWERS ALL QUESTIONS. NO SIGNS OF DISTRESS NOTED. BED ALARM ON, NO SIGNS OF DISTRESS NOTED. WILL CONT TO FOLLOW POC
--- NOTE | 2019-06-16 12:00 | NUR ---
PT RESTING IN BED, VSS AND WNL. BED ALARM ON. PT ANSWERS ALL QUESTIONS, DENIES ANY NEEDS AT THIS TIME, WILL CONT TO FOLLOW POC
--- NOTE | 2019-06-16 15:00 | NUR ---
PT RESTING IN BED, VSS AND WNL. BED ALARM ON. NO SIGNS OF DISTRESS NOTED. CALL LIGHT WITHIN REACH, PT REPOSITIONED. DENIES ANY FURTHER NEEDS AT THIS TIME, WILL CONT TO FOLLOW POC
--- NOTE | 2019-06-16 19:30 | NUR ---
SHIFT ASSESSMENT COMPLETED SEE FLOWSHEET, PT DENIES NEEDS ON BIPAP AT THIS TIME STRICT NPO PER REPORT, NOT TO COME OFF OF BIPAP AT ALL. VSS CPOC
[2019-06-16 19:40] LABS: ANION GAP 8.3 mmol/L (8-16); CALCIUM 7.8 mg/dL (8.5-10.1); CARBON DIOXIDE 34.9 mmol/L (21.0-32.0); CREATININE - SERUM 2.8 mg/dL (0.6-1.3); POTASSIUM - SERUM 3.2 mmol/L (3.5-5.1)
--- NOTE | 2019-06-16 21:00 | NUR ---
HELD PM MEDS DUE TO BIPAP COMPLIANCY AND STRICT NPO STATUS PER REPORT
--- NOTE | 2019-06-16 23:15 | NUR ---
REASSESSMENT COMPLETED SEE FLOW SHEET
[2019-06-17] VITALS (25 sets, daily range): BP systolic 120–152; BP diastolic 42–90
--- NOTE | 2019-06-17 01:39 | NUR ---
PATIENT RESTING COMFORTABLY VSS CPOC
--- NOTE | 2019-06-17 03:30 | NUR ---
PT C/O NAUSEA STATING HE NEEDS TO THROW UP, REMOVED BIPAP AT THIS TIME AND PLACED ON NASAL CANNULA - PT PROVIDED WITH EMESIS BAG - 200 CC THICK SU EMESIS NOTED. PT CLEANED UP AND RECEIVED HCG BATH AT THIS TIME. COMPLETE LINEN CHANGE COMPLETED. CENTRAL LINE DRESSING CHANGED PER PROTOCOL. VSS CPOC
[2019-06-17 06:01] LABS: BASOPHILS 0.3 % (0-2); EOSINOPHILS 13.6 % (0-7); HEMOGLOBIN 10.2 g/dL (13.5-17.5); IMMATURE GRANULOCYTES 0.8 % (0-5); LYMPHOCYTES 10.5 % (15-50); MCH 26.7 pg (26.0-34.0); MEAN PLATELET VOLUME 9.6 fL (7.4-10.4); NEUTROPHILS 69.8 % (40-80); PLATELET COUNT 185 10x3/uL (130-400); RBC 3.82 10x6/uL (4.20-6.10); RDW 16.3 % (11.5-14.5); WBC 11.9 10x3/uL (4.8-10.8)
[2019-06-17 06:33] LABS: ALBUMIN 2.7 g/dL (3.4-5.0); ANION GAP 10.5 mmol/L (8-16); BILIRUBIN - TOTAL 0.8 mg/dL (0.2-1.3); CALCIUM 7.9 mg/dL (8.5-10.1); CARBON DIOXIDE 33.6 mmol/L (21.0-32.0); CREATININE - SERUM 2.8 mg/dL (0.6-1.3); PHOSPHOROUS 3.7 mg/dL (2.5-4.9); POTASSIUM - SERUM 3.1 mmol/L (3.5-5.1); PROTEIN - SERUM 6.3 g/dL (6.4-8.2)
--- NOTE | 2019-06-17 07:15 | NUR ---
PT RESTING IN BED, VSS AND WNL. BED ALARM ON. NO SIGNS OF DISTRESS NOTED. CALL LIGHT WITHIN REACH. MORRO AT BEDSIDE, WILL CONT TO FOLLOW POC
--- NOTE | 2019-06-17 09:05 | NUR ---
PT RESTING IN BED, REPOSITIONED. VSS AND WNL. GAURD AT BEDSIDE, CALL LIGHT WITHIN REACH, BED ALARM ON, WILL CONT TO FOLLOW POC
--- NOTE | 2019-06-17 12:00 | NUR ---
PT RESTING IN BED, VSS AND WNL. NO SIGNS OF DISTRESS NOTED. BED ALARM ON. MORRO AT BEDSIDE, WILL CONT TO FOLLOW POC
--- NOTE | 2019-06-17 15:00 | NUR ---
PT RESTING IN BED, VSS AND WNL. BED ALARM ON. MORRO AT BEDSIDE. NO SIGNS OF DISTRESS NOTED. WILL CONT TO FOLLOW POC
[2019-06-17 16:37] LABS: ANION GAP 9.8 mmol/L (8-16); CALCIUM 7.8 mg/dL (8.5-10.1); CARBON DIOXIDE 36.4 mmol/L (21.0-32.0); CREATININE - SERUM 2.4 mg/dL (0.6-1.3); POTASSIUM - SERUM 3.2 mmol/L (3.5-5.1)
--- NOTE | 2019-06-17 20:18 | NUR ---
PT RECEIVED HS MEDICATIONS - DENIES NEEDS - SLIGHTLY CONFUSED ORIENTS TO PERSON PLACE AND TIME
--- NOTE | 2019-06-17 23:47 | NUR ---
REASSESSMENT COMPLETED SEE FLOWSHEET
[2019-06-18] VITALS (24 sets, daily range): BP systolic 113–160; BP diastolic 47–75; Ht 177.8 cm; Wt 107.0 kg
--- NOTE | 2019-06-18 00:38 | NUR ---
RT AT BEDSIDE, BIPAP REPLACEMENT AND EDUCATION TO PATIENT FOR NEED OF CONTINOUS BIPAP.
--- NOTE | 2019-06-18 03:30 | NUR ---
REASSESSMENT COMPLETED SEE FLOWSHEET
[2019-06-18 05:20] LABS: BASOPHILS 0.1 % (0-2); EOSINOPHILS 10.4 % (0-7); HEMATOCRIT 35.5 % (42.0-54.0); HEMOGLOBIN 10.8 g/dL (13.5-17.5); IMMATURE GRANULOCYTES 0.7 % (0-5); LYMPHOCYTES 8.7 % (15-50); MCH 26.7 pg (26.0-34.0); MCHC 30.4 g/dL (31.0-37.0); MCV 87.7 fL (80.0-100.0); MEAN PLATELET VOLUME 9.3 fL (7.4-10.4); MONOCYTES 4.2 % (2-11); NEUTROPHILS 75.9 % (40-80); PLATELET COUNT 175 10x3/uL (130-400); RBC 4.05 10x6/uL (4.20-6.10); RDW 15.8 % (11.5-14.5); WBC 11.7 10x3/uL (4.8-10.8)
--- NOTE | 2019-06-18 05:33 | NUR ---
PT RECEIVED CHG BATH AND COMPLETE LINEN CHANGE - STOREY STAT LOCK REPLACED AT THIS TIME. VSS CPOC
[2019-06-18 05:46] LABS: ALBUMIN 2.6 g/dL (3.4-5.0); ANION GAP 4.3 mmol/L (8-16); BILIRUBIN - TOTAL 0.8 mg/dL (0.2-1.3); CALCIUM 7.6 mg/dL (8.5-10.1); CARBON DIOXIDE 39.8 mmol/L (21.0-32.0); CREATININE - SERUM 2.2 mg/dL (0.6-1.3); PHOSPHOROUS 2.9 mg/dL (2.5-4.9); POTASSIUM - SERUM 3.1 mmol/L (3.5-5.1); PROTEIN - SERUM 6.1 g/dL (6.4-8.2)
--- NOTE | 2019-06-18 07:17 | NUR ---
PT RESTING IN BED, VSS AND WNL. SHIFT ASSESSMENT PERFORMED. NO SIGNS OF DISTRESS NOTED. BED ALARM ON. CALL LIGHT WITHIN REACH, DENIES ANY NEEDS AT THIS TIME, GAURD AT BEDSIDE. WILL CONT TO FOLLOW POC
--- NOTE | 2019-06-18 08:05 | NUR ---
PT TOOK OFF BIPAP. EDUCATION PROVIDED ON IMPORTANCE OF USING BIPAP TO KEEP CO2 LEVELS WNL AND PREVENTING INTUBATION. PT VERBALIZED UNDERSTANDING, GAURD AT BEDSIDE, WILL CONT TO FOLLOW POC
--- NOTE | 2019-06-18 09:11 | NUR ---
PT ATE 100% OF BREAKFAST. BIPAP PLACED BACK ON PT. BED ALARM ON. NO SIGNS OF DISTRESS NOTED AT THIS TIME, MORRO AT BEDSIDE. WILL CONT TO FOLLOW POC
--- NOTE | 2019-06-18 09:23 | NUR ---
Nutrition follow-up: Diet advanced to consistent CHO mechanical soft with thin liquids PO intake ~50% of breakfast Labs reviewed Pt is still with BIPAP most of the time Wt: 242# RDN following.
--- NOTE | 2019-06-18 11:20 | NUR ---
PLACED PT ON NC AND TRAY SET UP PROVIDED, NO SIGNS OF DISTRESS NOTED, VSS AND WNL. BED ALARM ON. WILL CONT TO FOLLOW POC
--- NOTE | 2019-06-18 13:30 | NUR ---
PT RESTING IN BED, VSS AND WNL. REMAINS ON NC. DENIES ANY NEEDS AT THIS TIME, BED ALARM ON, WILL CONT TO FOLLOW POC
--- NOTE | 2019-06-18 17:12 | NUR ---
PT RESTING IN BED WATCHING TV. VSS AND WNL. BED ALARM ON. NO SIGNS OF DISTRESS NOTED. WILL CONT TO FOLLOW POC
--- NOTE | 2019-06-18 19:10 | NUR ---
RECIVED BEDSIDE SHIFT REPROT AT BEDSIDE. PT IS RESTING IN BED WITH EYES CLOSED WITH BIPAP ON. VITALS SIGNS ARE STABLE. WILL PERFORM SHIFT ASSESSMENT AND DOC. BED IS LOW,SIDE RAILSX2,CALL LIGHT WITHIN REACH. GUARD IS AT DOOR. PT DID REQUEST FOR A WARM BLANKET AND I PROVIDED THAT TO HIM. HE VOICED"O THANK YOU". WILL CONITNUE TO MONITOR
--- NOTE | 2019-06-18 21:00 | NUR ---
PT BIPAP MACHINE WAS ALARMING FROM ROOM. WHEN GOING INTO ROOM, PT BIPAP IS HALF WAY OF HIS FACE AND PT EYES ARE CLOSED. VITALS REMAIN STABLE. REPOSITION MASK ON FACE. NO NEEDS VOICED. BED IS LOW,SIDE RAILSX2,CALL LIGHT WITHIN REACH. WILL CONTINUE TO MONITOR
--- NOTE | 2019-06-18 23:33 | NUR ---
PT IS RESTING IN BED WITH EYES CLOSED. BIPAP IS ON. VITALS ARE STABLE. BED IS LOW,SIDE RAILSX2,CALL LIGHT WITHIN REACH. BED ALARM IS ON. WILL CONTINUE TO MONITOR
[2019-06-19] VITALS (24 sets, daily range): BP systolic 102–159; BP diastolic 34–122
--- NOTE | 2019-06-19 01:37 | NUR ---
PT IS RESTING IN BED ON RIGHT SIDE WITH BIPAP ON. VSS. BED IS LOW,SIDE RAISLX2,CALL LIGTH WITHIN REACH. WILL CONTINUE TO MONITOR
--- NOTE | 2019-06-19 03:30 | NUR ---
PERFORMING RE-ASSESSMENT WILL DOC. PT IS RESTING WITH EYES CLOSED. BIPAP IS ON. VSS. BED IS LOW, SIDE RIALSX2,CALL LIGHT WITHIN REACH. WILL CONTINEU TO MONITOR
[2019-06-19 05:11] LABS: BASOPHILS 0.1 % (0-2); EOSINOPHILS 11.5 % (0-7); HEMATOCRIT 33.8 % (42.0-54.0); HEMOGLOBIN 10.3 g/dL (13.5-17.5); IMMATURE GRANULOCYTES 0.8 % (0-5); LYMPHOCYTES 10.6 % (15-50); MCH 26.8 pg (26.0-34.0); MCHC 30.5 g/dL (31.0-37.0); MCV 87.8 fL (80.0-100.0); MEAN PLATELET VOLUME 9.2 fL (7.4-10.4); MONOCYTES 5.3 % (2-11); NEUTROPHILS 71.7 % (40-80); PLATELET COUNT 198 10x3/uL (130-400); RBC 3.85 10x6/uL (4.20-6.10); RDW 16.2 % (11.5-14.5); WBC 11.8 10x3/uL (4.8-10.8)
[2019-06-19 05:40] LABS: ALBUMIN 2.5 g/dL (3.4-5.0); ANION GAP 3.9 mmol/L (8-16); BILIRUBIN - TOTAL 0.92 mg/dL (0.2-1.3); CALCIUM 7.7 mg/dL (8.5-10.1); MAGNESIUM - SERUM 1.9 mg/dL (1.8-2.4); PHOSPHOROUS 2.8 mg/dL (2.5-4.9); POTASSIUM - SERUM 3.5 mmol/L (3.5-5.1)
[2019-06-19 05:48] LABS: CARBON DIOXIDE 40.6 mmol/L (21.0-32.0)
--- NOTE | 2019-06-19 06:35 | NUR ---
PT IS RESTING IN BED WAATCHING TV. VSS. NO NEEDS REQUESTED. BED IS LOW,SIDE RAILSX2, CALL LIGHT WIHTIN REACH. WILL CONTINUE TO MONITOR
--- NOTE | 2019-06-19 09:12 | NUR ---
BREAKFAST TRAY SERVED AND PT [id number]. PTIS EATING WITHOUT DIFFICULTY.
--- NOTE | 2019-06-19 13:39 | NUR ---
PT REPOSITIONED AND LUNCH TRAY SERVED. PT IS EATING WITH OUT DIFFICULTY.
--- NOTE | 2019-06-19 14:48 | NUR ---
GUARD AT . PT HAS VISITORS IN ROOM. PTS MOTHER AND ANOTHER LADY. GUARD STATES THAT THEY ARE CLEARED BY PRISION TO VISIT. PT ATTEMPTING TO GET OOB AND HE STATES THAT HE IS GOING TO SMOKE. REPOSITIONED BACK INTO BED.
--- NOTE | 2019-06-19 15:03 | NUR ---
PHONED DR HIGGINS RE: MESSAGE FOR [facility]/ NURSING MESSAGE. REC'D ORDERS TO DC.
--- NOTE | 2019-06-19 18:51 | NUR ---
CHG BATH AND LINENS CHANGED.
--- NOTE | 2019-06-19 19:00 | NUR ---
ASSESSMENT COMPLETED. LAYING BACK IN BED. O2 AT 9L NC HF. DENIES ANY NEEDS. CALL LIGHT IN REACH. CONFUSION NOTED.
--- NOTE | 2019-06-19 21:00 | NUR ---
REPOSITIONED. CALL LIGHT IN REACH
--- NOTE | 2019-06-19 23:00 | NUR ---
RE-ASSESSMENT COMPLETED. PT MORE CONFUSED. O2 DROPPING TO 80'S% AT TIMES. BIPAP PLACED ON PATIENT.
[2019-06-20] VITALS (16 sets, daily range): BP systolic 130–165; BP diastolic 57–108
--- NOTE | 2019-06-20 01:00 | NUR ---
PATIENT TAKING OFF MASK AND PULSE OX. ATTEMPTED TO REORIENT BUT UNSUCCESSFUL
--- NOTE | 2019-06-20 03:00 | NUR ---
RE-ASSESSMENT COMPLETED. NO CHANGES SINCE LAST ASSESSMENT
[2019-06-20 04:24] LABS: BASOPHILS 0.2 % (0-2); HEMATOCRIT 33.6 % (42.0-54.0); HEMOGLOBIN 10.3 g/dL (13.5-17.5); IMMATURE GRANULOCYTES 0.9 % (0-5); LYMPHOCYTES 9.5 % (15-50); MCH 26.6 pg (26.0-34.0); MCHC 30.7 g/dL (31.0-37.0); MCV 86.8 fL (80.0-100.0); MEAN PLATELET VOLUME 8.8 fL (7.4-10.4); NEUTROPHILS 69.4 % (40-80); PLATELET COUNT 208 10x3/uL (130-400); RBC 3.87 10x6/uL (4.20-6.10); RDW 16.4 % (11.5-14.5); WBC 12.9 10x3/uL (4.8-10.8)
[2019-06-20 04:39] LABS: ALBUMIN 2.6 g/dL (3.4-5.0); ANION GAP 2.9 mmol/L (8-16); BILIRUBIN - TOTAL 0.85 mg/dL (0.2-1.3); CALCIUM 7.8 mg/dL (8.5-10.1); CARBON DIOXIDE 39.6 mmol/L (21.0-32.0); CREATININE - SERUM 1.6 mg/dL (0.6-1.3); PHOSPHOROUS 2.5 mg/dL (2.5-4.9); POTASSIUM - SERUM 3.5 mmol/L (3.5-5.1); PROTEIN - SERUM 5.7 g/dL (6.4-8.2)
--- NOTE | 2019-06-20 05:00 | NUR ---
PATIENT TRYING TO GET FEET OUT OF BED. TRIED TO PUT BIPAP BACK ON AND PATIENT REFUSED AND TOOK IT OFF. O2 ON VIA NC. PATIENT CONT TO TAKE OFF LEADS AND PULSE OX
--- NOTE | 2019-06-20 11:37 | NUR ---
PT CONFUSED. REPOSITIONED FOR COMFORT. ASSISTED WITH MEAL TRAY. PT IS PICKING AT AIR WITH CONFUSION.
--- NOTE | 2019-06-20 16:43 | NUR ---
PT RECIEVED FROM ICU TO ROOM 2221 VIA BED. PT RESTING WITH EYES CLOSED. OPENS EYES WHEN NAME CALLED. IJ TO RIGHT NECK WITH D5W @ 30ML/HR INFUSING VIA PUMP. SITE WITHOUT REDNESS OR EDEMA. SCRATCHES NOTED TO OVERALL BODY. RAISED REDENNED AREA NOTED TO LEFT ABDOMEN. O2 @ 3L HF NOTED. F/C PATENT TO GRAVITY. SHAKLE NOTED TO RIGHT ANKLE. SKIN INTACT. SCD'S ON BILATERALLY. GUARD AT BEDSIDE.
[2019-06-21] VITALS: BP 158/67
[2019-06-21 04:00] VITALS: BP 173/72
[2019-06-21 05:16] LABS: BASOPHILS 0.3 % (0-2); EOSINOPHILS 13.8 % (0-7); HEMATOCRIT 33.9 % (42.0-54.0); HEMOGLOBIN 10.6 g/dL (13.5-17.5); IMMATURE GRANULOCYTES 0.3 % (0-5); LYMPHOCYTES 10.4 % (15-50); MCH 26.7 pg (26.0-34.0); MCHC 31.3 g/dL (31.0-37.0); MCV 85.4 fL (80.0-100.0); MONOCYTES 8.4 % (2-11); NEUTROPHILS 66.8 % (40-80); PLATELET COUNT 216 10x3/uL (130-400); RBC 3.97 10x6/uL (4.20-6.10); RDW 16.4 % (11.5-14.5); WBC 11.5 10x3/uL (4.8-10.8)
[2019-06-21 05:42] LABS: APTT 32.4 SECONDS (22.8-39.4); INR 1.13 (0.85-1.17); PROTIME 14.4 SECONDS (11.6-15.0)
[2019-06-21 06:54] LABS: ALBUMIN 2.7 g/dL (3.4-5.0); ANION GAP 5.9 mmol/L (8-16); BILIRUBIN - TOTAL 0.85 mg/dL (0.2-1.3); CALCIUM 7.5 mg/dL (8.5-10.1); CARBON DIOXIDE 35.8 mmol/L (21.0-32.0); CREATININE - SERUM 1.5 mg/dL (0.6-1.3); POTASSIUM - SERUM 3.7 mmol/L (3.5-5.1); PROTEIN - SERUM 5.7 g/dL (6.4-8.2)
--- NOTE | 2019-06-21 08:00 | NUR ---
PATIENT IN BED WITH IV NTACT. MORRO AT BEDSIDE. BSCDS ON AND WORKING. CALL LIGHT WITHIN REACH. PATIENT SLIGHTLY CONFUSED AT THIS TIME.
[2019-06-21 09:14] VITALS: BP 161/48
[2019-06-21 12:52] VITALS: BP 155/70
--- NOTE | 2019-06-21 14:13 | NUR ---
PATIENT IN BED WITH IV INTACT. NO COMPLAINTS OR SIGNS OF DISTRESS. CALL LIGHT WITHIN REACH.
[2019-06-21 17:13] VITALS: BP 147/56
[2019-06-21 20:00] VITALS: BP 139/71
--- NOTE | 2019-06-21 20:00 | NUR ---
ALERT RESTING IN BED, CONFUSED AT TIME, O2 IN CONTINOUS USE, STOREY CATH TO BEDSIDE DRAINAGE, SEE SHIFT ASSESSMENT, TIM AT BEDSIDE
[2019-06-22] VITALS: BP 147/67
[2019-06-22 04:00] VITALS: BP 105/33; BP 122/53
[2019-06-22 05:50] LABS: BASOPHILS 0.2 % (0-2); EOSINOPHILS 12.6 % (0-7); HEMATOCRIT 35.4 % (42.0-54.0); HEMOGLOBIN 11.1 g/dL (13.5-17.5); IMMATURE GRANULOCYTES 0.6 % (0-5); MCH 26.3 pg (26.0-34.0); MCHC 31.4 g/dL (31.0-37.0); MCV 83.9 fL (80.0-100.0); MEAN PLATELET VOLUME 9.3 fL (7.4-10.4); MONOCYTES 9.4 % (2-11); NEUTROPHILS 64.2 % (40-80); PLATELET COUNT 229 10x3/uL (130-400); RBC 4.22 10x6/uL (4.20-6.10); RDW 16.8 % (11.5-14.5); WBC 9.9 10x3/uL (4.8-10.8)
[2019-06-22 07:26] LABS: CALCIUM 8.2 mg/dL (8.5-10.1); CARBON DIOXIDE 33.9 mmol/L (21.0-32.0); CREATININE - SERUM 1.3 mg/dL (0.6-1.3); POTASSIUM - SERUM 3.9 mmol/L (3.5-5.1)
--- NOTE | 2019-06-22 08:02 | NUR ---
RECIEVED REPORT, PATIENT IS RESTING QUIETLY AT THIS TIME. DENIES ANY NEEDS.
[2019-06-22 09:42] VITALS: BP 129/63
[2019-06-22 13:01] VITALS: BP 152/71
[2019-06-22 17:24] VITALS: BP 129/56
--- NOTE | 2019-06-22 18:49 | NUR ---
PATIENT IS RESTING QUIETLY AT THIS TIME. DENIES ANY NEEDS. GAJAKED AT BEDSIDE.
[2019-06-22 20:00] VITALS: BP 133/74
--- NOTE | 2019-06-23 00:30 | NUR ---
ASSISTED UP TO [facility] [place] LOOSE BLACK STOOL REPORTED BY VIDHI FRANCISCO
--- NOTE | 2019-06-23 04:51 | NUR ---
ALERT RESTING IN BED DRNIES PAIN OR NEEDS AT THSI TIME, SEE SHIFT ASSESSMENT, TIM AT BEDSIDE
[2019-06-23 06:52] LABS: HEMATOCRIT 36.4 % (42.0-54.0); HEMOGLOBIN 11.4 g/dL (13.5-17.5); MCH 26.5 pg (26.0-34.0); MCHC 31.3 g/dL (31.0-37.0); MCV 84.7 fL (80.0-100.0); MEAN PLATELET VOLUME 9.1 fL (7.4-10.4); PLATELET COUNT 232 10x3/uL (130-400); RDW 17.2 % (11.5-14.5); WBC 8.8 10x3/uL (4.8-10.8)
[2019-06-23 07:27] LABS: ANION GAP 8.2 mmol/L (8-16); CALCIUM 8.2 mg/dL (8.5-10.1); CARBON DIOXIDE 31.8 mmol/L (21.0-32.0); CREATININE - SERUM 1.4 mg/dL (0.6-1.3)
[2019-06-23 09:32] VITALS: BP 124/41
--- NOTE | 2019-06-23 10:22 | NUR ---
RESTING IN BED, NO DISTRESS NOTED, CENTRAL LINE TO RIGHT NECK, STOREY TO GRAVITY, URINE YELLOW IN COLOR, CONT TO MONITOR SUGARS, GUARD IN ROOM
[2019-06-23 10:59] LABS: ANISOCYTOSIS OCC; EOSINOPHILS 14 % (0-7); LYMPHOCYTES 13 % (15-50); MONOCYTES 14 % (2-11); NEUTROPHILS 57 % (40-80); PLATELET ESTIMATE NORMAL; ROULEAUX OCC
[2019-06-23 12:40] VITALS: BP 135/47
--- NOTE | 2019-06-23 14:40 | NUR ---
NUTRITION F/U PT REMAINS IN ISOLATION. CURRENTLY ON CLEAR LIQUID DIET FOR AM COLONOSCOPY. WILL MONITOR DIET ADVANCEMENT, PO INTAKE. RD FOLLOWING
[2019-06-23 16:53] VITALS: BP 142/64
--- NOTE | 2019-06-23 18:38 | NUR ---
PT SLOW TO DRINK GOLYTLY, STATES THAT IT TASTE BAD, WANTS TO HAVE A BM, TOLD PT THAT THIS WOULD CAUSE HIM TO HAVE ONE, TOOK DULCOLAX WITHOUT PROBLEM
--- NOTE | 2019-06-23 18:42 | NUR ---
DRESSING CHANGED TO CENTRAL LINE, LUDWIG WELL, NO S/S OF INFECTION
--- NOTE | 2019-06-23 19:00 | NUR ---
RESTIGN IN BED, HOLDING FULL CUP OF GOLYTELY, INSTRUCTED NEEDED TO DRING 1 CUP EVERY 15 MIN UNTILL WHOLE JUG IS GONE, HAS CURRENTLY ONLY DRANK APPROX 1/3 OF GALLON, STATES DOESNT LIKE IT, INSTRUCTED TO EITHER DRINK IT OR WILL PLACE TUBE DOWN NOSE AND GIVE IT THAT WAY, AGREED TO DRINK IT,WILL MONITOR
--- NOTE | 2019-06-23 19:28 | NUR ---
DR ZACARIAS STATES IF PT DOESNT DRINK GOLYTLY TO DROP AND NG TUBE AND PUT IT DOWN THAT, CONT TO MONITOR
[2019-06-23 20:00] VITALS: BP 160/84
--- NOTE | 2019-06-23 20:00 | NUR ---
WILL NOT DRINK GOLYTELY UNLESS NURSE STANDS OVER HIM AND MAKES HIM DRINK IT, ENCOURAGED TO KEEP DRINKING
--- NOTE | 2019-06-23 20:30 | NUR ---
GOLYTELY JUG EMPTY, PT TATES HE DRANK IT AND THEN VOMITED IT UP ON FLOOR, CLEAR FLUID NOTED ON FLOOR, CALLED PHARMACY AND INFORMED THEM THAT PT HAD WASTED HALF JUG OF GOLYTELY AND NEEDED ANOTHER GALLON, RECIEVED AND INFOREMED PT THAT WOULD GIVE 1 CUP EVERY 15 MIN TILL AT LEAST HALF GONE, INCONTIENT OF LARGE AMOUNT LIQUID STOOL AT THIS TIME BED CHANGED
--- NOTE | 2019-06-24 00:15 | NUR ---
FINISHED GOLYTELY, HAVING FREQUENT LIQUID BMS WITH COMPLETE BED CHANGES AND UP TO BEDSIDE COMODE
[2019-06-24 06:19] LABS: EOSINOPHILS 13.3 % (0-7); HEMATOCRIT 36.8 % (42.0-54.0); HEMOGLOBIN 11.7 g/dL (13.5-17.5); IMMATURE GRANULOCYTES 0.6 % (0-5); LYMPHOCYTES 20.9 % (15-50); MCH 26.7 pg (26.0-34.0); MCHC 31.8 g/dL (31.0-37.0); MEAN PLATELET VOLUME 9.1 fL (7.4-10.4); MONOCYTES 11.8 % (2-11); NEUTROPHILS 52.4 % (40-80); PLATELET COUNT 223 10x3/uL (130-400); RBC 4.38 10x6/uL (4.20-6.10); RDW 16.9 % (11.5-14.5); WBC 8.4 10x3/uL (4.8-10.8)
[2019-06-24 06:39] LABS: ANION GAP 6.6 mmol/L (8-16); CALCIUM 8.6 mg/dL (8.5-10.1); CARBON DIOXIDE 31.3 mmol/L (21.0-32.0); CREATININE - SERUM 1.5 mg/dL (0.6-1.3); POTASSIUM - SERUM 3.9 mmol/L (3.5-5.1)
[2019-06-24 08:17] VITALS: BP 163/73
--- NOTE | 2019-06-24 09:00 | NUR ---
ALERT WITH INTERMITTANT CONFUSION. PATIENT NPO AT THIS TIME PENDING COLONOSCOPY. O2 2L N/C. ABDOMEN SOFT WITH BOWEL SOUNDS NOTED X4. DENIES ANY PAIN OR DISCOMFORT AT THIS TIME WITH GUARD PRESENT WITH ANKLE RESTRAINT. ENCOURAGED TO USE CALL LIGHT FOR ASSSIT.. NO PERIPHERAL EDEMA NOTED WITH BLISTER NOTED TO LEFT FLANK. IV TO RT. IJ S/L WITH NO S/S OF INFECTION/INFILTRATION NOTED.
[2019-06-24 11:00] VITALS: BP 125/54
[2019-06-24 13:52] VITALS: BP 139/70
[2019-06-24 20:00] VITALS: BP 135/65
[2019-06-25 04:00] VITALS: BP 150/77
[2019-06-25 07:46] LABS: ANION GAP 7.9 mmol/L (8-16); CALCIUM 7.9 mg/dL (8.5-10.1); CARBON DIOXIDE 29.9 mmol/L (21.0-32.0); CREATININE - SERUM 1.3 mg/dL (0.6-1.3); POTASSIUM - SERUM 3.8 mmol/L (3.5-5.1)
[2019-06-25 07:48] LABS: BASOPHILS 1.8 % (0-2); EOSINOPHILS 16.5 % (0-7); HEMATOCRIT 32.6 % (42.0-54.0); HEMOGLOBIN 10.5 g/dL (13.5-17.5); IMMATURE GRANULOCYTES 0.3 % (0-5); LYMPHOCYTES 27.4 % (15-50); MCHC 32.2 g/dL (31.0-37.0); MCV 83.8 fL (80.0-100.0); MEAN PLATELET VOLUME 9.2 fL (7.4-10.4); MONOCYTES 10.4 % (2-11); NEUTROPHILS 43.6 % (40-80); PLATELET COUNT 187 10x3/uL (130-400); RBC 3.89 10x6/uL (4.20-6.10); RDW 17.1 % (11.5-14.5); WBC 6.9 10x3/uL (4.8-10.8)
[2019-06-25 08:47] VITALS: BP 137/46
--- NOTE | 2019-06-25 09:00 | NUR ---
ALERT WITH INTERMITTANT CONFUSION NOTED. RT. IJ NOTED AND CONTINUES ON DROPPLET PRECAUTIONS. STOREY CATH PATENT WITH DENEEN URINE NOTED. STOREY CATH CARE DONE Q SHIFT. CONTINUES ON CLEAR LIQUID DIET WITH NO COMPLAINT OF PAIN OR DISCOMFORT WITH BOWEL SOUNDS NOTED X4. ENCOURAGED TO USE CALL LIGHT FOR ASSSIT.
[2019-06-25 10:51] LABS: BACTERIA FEW /hpf (NEGATIVE); BILIRUBIN NEGATIVE (NEGATIVE); EPITHELIAL CELLS RARE /hpf (0-5); GLUCOSE NEGATIVE (NEGATIVE); KETONE NEGATIVE (NEGATIVE); NITRITE NEGATIVE (NEGATIVE); SPECIFIC GRAVITY 1.015 (1.005-1.020); WHITE CELLS - URINE RARE /hpf (NEGATIVE)
[2019-06-25 12:38] VITALS: BP 151/64
--- NOTE | 2019-06-25 13:16 | NUR ---
Nutrition follow-up: Pt on clear liquid diet today 2/2 colonoscopy today PO intake before has been 60-75% of meals labs reviewed Wt: 235# RDN following.
[2019-06-25 17:16] VITALS: BP 125/60
--- NOTE | 2019-06-25 18:23 | OP ---
PATIENT NAME: NATALIA BARLOW MEDICAL RECORD: [id number] :51 LOCATION:D.MS [id number] ADMISSION DATE:06/03/19 SURGEON: HUMBERTO FREIRE MD DATE OF OPERATION: 06/15/2019 PREOPERATIVE DIAGNOSES: 1. Gastrointestinal bleeding. 2. Blood loss anemia requiring transfusions. POSTOPERATIVE DIAGNOSES: 1. Gastrointestinal bleeding. 2. Blood loss anemia requiring transfusions. 3. Inadequate prep. PROCEDURE: Attempted (aborted) colonoscopy. SURGEON: Humberto Freire MD FORECLOSURE FIELD INSPECTOR: None. BLOOD LOSS: 0. OPERATIVE COURSE: The patient was seen in his ICU bed. IV sedation was induced by the anesthesia staff. The patient was placed in the [place] position. A digital rectal examination was performed. A colonoscope was inserted through the anus. It was advanced easily to the hepatic flexure. The prep was inadequate. I could not proceed safely any further. The endoscope was withdrawn. I can only exclude obstructing rectal and colonic lesions to the hepatic flexure. TRANSINT:[id number] Voice Confirmation ID: [id number] DOCUMENT ID: [id number] HUMBERTO FREIRE MD at 1823 CC: [id number] DICTATION DATE: 06/23/19 1148 MATERIAL REPROCESSING ASSOCIATE: 06/23/19 1416 ADM IN [place] [id number] [place] [address]
[2019-06-25 20:00] VITALS: BP 132/66
--- NOTE | 2019-06-25 23:00 | NUR ---
ORDER TO EXCHANGE STOREY CATHETER. EMPTIED CATHETER 575 MLS STRAW COLOR URINE. REMOVED STOREY CATHETER. PT ASKED IF HE COULD TRY TO VOID ON HIS OWN BEFORE PUTTING CATHETER BACK IN. LEAVING STOREY CATHETER OUT FOR A WHILE TO SEE IF PT CAN VOID.
[2019-06-26 04:00] VITALS: BP 142/60
[2019-06-26 08:08] VITALS: BP 114/48
[2019-06-26 08:42] LABS: EOSINOPHILS 18.5 % (0-7); HEMOGLOBIN 10.3 g/dL (13.5-17.5); IMMATURE GRANULOCYTES 0.3 % (0-5); LYMPHOCYTES 25.3 % (15-50); MCH 26.6 pg (26.0-34.0); MCHC 31.2 g/dL (31.0-37.0); MCV 85.3 fL (80.0-100.0); MEAN PLATELET VOLUME 9.1 fL (7.4-10.4); MONOCYTES 8.6 % (2-11); NEUTROPHILS 45.3 % (40-80); PLATELET COUNT 191 10x3/uL (130-400); RBC 3.87 10x6/uL (4.20-6.10); RDW 17.3 % (11.5-14.5); WBC 6.7 10x3/uL (4.8-10.8)
[2019-06-26 08:49] LABS: ANION GAP 8.1 mmol/L (8-16); CALCIUM 8.2 mg/dL (8.5-10.1); CARBON DIOXIDE 31.5 mmol/L (21.0-32.0); CREATININE - SERUM 1.3 mg/dL (0.6-1.3); POTASSIUM - SERUM 3.6 mmol/L (3.5-5.1)
--- NOTE | 2019-06-26 09:00 | NUR ---
ASSESSMENT PER FLOW SHEET. PT IS WITHOUT NEEDS.GUARD AT BEDSIDE. BATH BY NOLAN SALDANA AND BED CHANGED
[2019-06-26 12:43] VITALS: BP 117/64
[2019-06-26 16:39] VITALS: BP 140/66
--- NOTE | 2019-06-26 17:24 | NUR ---
REMAINS WITHOUT DISTRESS,WITHOUT CHANGE.GUARD AT BEDSIDE. CONT PLAN OF CARE
[2019-06-26 19:46] VITALS: BP 109/46
[2019-06-27 01:20] VITALS: BP 100/56
[2019-06-27 05:12] VITALS: BP 135/66
[2019-06-27 07:03] LABS: ANION GAP 8.4 mmol/L (8-16); CALCIUM 8.2 mg/dL (8.5-10.1); CARBON DIOXIDE 30.3 mmol/L (21.0-32.0); CREATININE - SERUM 1.4 mg/dL (0.6-1.3); POTASSIUM - SERUM 3.7 mmol/L (3.5-5.1)
[2019-06-27 08:06] VITALS: BP 107/46
--- NOTE | 2019-06-27 09:00 | NUR ---
ASSESSMENT PER FLOW SHEET. PATIENT IS WITHOUT DISTRESS.GUARD AT BEDSIDE. INSTRUCTED TO CALL FOR NEEDS
[2019-06-27 12:34] VITALS: BP 140/51
--- NOTE | 2019-06-27 13:46 | NUR ---
RIGHT IJ DRESSING CHANGED,STEAM TRAIN DRIVER MAINTAINED.
[2019-06-27 16:09] VITALS: BP 112/54
--- NOTE | 2019-06-27 17:35 | NUR ---
INCREASED CONFUSION AND SLEEPINESS. CALLED AND SPOKE WITH CRUZITO TREVIÑO APN THEN DR. MANNING. ORDERS RECIEVED AND INITIATED.
--- NOTE | 2019-06-27 17:52 | NUR ---
SPOKE WITH AMPARO STEINER. TUCKER. INSTRUCTED TO PUT PATIENT ON BIPAP AND SHE WOULD BE HERE SOON TR DRAW ABGaro.
--- NOTE | 2019-06-27 18:28 | NUR ---
SPOKE WITH DR. KERRI STEINER. ABG RESULTS. PATIENT IS TO WEAR BIPAP AT .
--- NOTE | 2019-06-27 19:05 | NUR ---
PATIENT ALERT AND ORIENTED TO SELF, TIME, PLACE, AND SITUATION. PATIENT. PATIENT ANSWERS QUESTIONS APPROPRIATELY. FINISHING BOTTLE OF MAG CITRATE WHEN CONVERSING WITH PATIENT. HAS RIGHT INTERNAL JUGGULAR. CURRENTLY WEARING 2L NC. LUNG SOUNDS DIMINISHED BILATERALLY. BOWEL SOUNDS HYPERACTIVE. PROVIDED TEACHING AND INSTRUCTION THAT HE IS NPO AT MIDNIGHT. PATIENT VERBALIZES UNDERSTANDING. DENIES FURTHER NEEDS AT THIS TIME. CALL LIGHT IN REACH. BED RAILS UP X 2. CPOC.
[2019-06-27 20:00] VITALS: BP 114/63
[2019-06-28] VITALS: BP 107/66
--- NOTE | 2019-06-28 03:00 | NUR ---
I have reviewed this patient and I concur with the Shift Assessment completed by the Licensed Practical Nurse today this shift.
--- NOTE | 2019-06-28 03:43 | NUR ---
PATIENT HAS REPORTED 6 BOWEL MOVEMENTS. OBSERVED BOWEL MOVEMENT IN BEDSIDE COMMODE. STILL VERY DARK AND THICK AFTER BOWEL PREP. SPOKE WITH APARTMENT LEASING AGENT ABOUT THIS SHE HAS BEEN TALKING WITH DR. FREIRE AND KEEPING HIM UPDATED ON BOWEL PREP FOR COLONOSCOPY. WILL CONTIUE TO OBSERVE STOOL. PATIENT STATES HE DOES NOT FEEL LIKE IT IS OVER, HIS STOMACH IS STILL CRAMPING LIKE HE MAY HAVE MORE BOWEL MOVEMENTS SOON. CALL LIGHT REMAINS IN REACH. BED RAILS UP X 2. CPOC.
[2019-06-28 04:00] VITALS: BP 104/58
[2019-06-28 05:13] LABS: BASOPHILS 0.8 % (0-2); EOSINOPHILS 22.3 % (0-7); HEMATOCRIT 35.3 % (42.0-54.0); HEMOGLOBIN 10.9 g/dL (13.5-17.5); IMMATURE GRANULOCYTES 0.2 % (0-5); LYMPHOCYTES 23.2 % (15-50); MCH 26.5 pg (26.0-34.0); MCHC 30.9 g/dL (31.0-37.0); MCV 85.9 fL (80.0-100.0); MEAN PLATELET VOLUME 8.8 fL (7.4-10.4); MONOCYTES 6.9 % (2-11); NEUTROPHILS 46.6 % (40-80); PLATELET COUNT 207 10x3/uL (130-400); RBC 4.11 10x6/uL (4.20-6.10); RDW 17.4 % (11.5-14.5)
[2019-06-28 05:19] LABS: WBC 9.1 10x3/uL (4.8-10.8)
[2019-06-28 05:41] LABS: ANION GAP 9.7 mmol/L (8-16); CALCIUM 8.3 mg/dL (8.5-10.1); CARBON DIOXIDE 29.2 mmol/L (21.0-32.0); CREATININE - SERUM 1.5 mg/dL (0.6-1.3); POTASSIUM - SERUM 3.9 mmol/L (3.5-5.1)
[2019-06-28 08:58] VITALS: BP 139/91
--- NOTE | 2019-06-28 13:09 | NUR ---
ADMINISTERED ENEMA TO PT THIS MORNING, HE HAS HAD 2 BMS WHICH ARE STILL VERY LOOSE AND BROWN, WILL CONTINUE WITH ENEMAS UNTIL CLEAR, NO OTHER NEEDS VOICED AT THIS TIME, CONTINUE WITH PLAN OF CARE
[2019-06-28 13:49] VITALS: BP 116/50
--- NOTE | 2019-06-28 14:23 | NUR ---
I have reviewed this patient and I concur with the Shift Assessment completed by the Licensed Practical Nurse today this shift.
--- NOTE | 2019-06-28 16:14 | NUR ---
ADMINISTERED ANOTHER SOAP MARI ENEMA, PT TOLERATED WELL, WILL CONTINUE WITH PLAN OF CARE
[2019-06-28 17:28] VITALS: BP 135/58
[2019-06-28 21:48] VITALS: BP 98/49
[2019-06-29 01:07] VITALS: BP 96/42
[2019-06-29 06:00] VITALS: BP 136/62
[2019-06-29 07:26] LABS: ANION GAP 6.7 mmol/L (8-16); CALCIUM 8.2 mg/dL (8.5-10.1); CARBON DIOXIDE 31.1 mmol/L (21.0-32.0); CREATININE - SERUM 1.5 mg/dL (0.6-1.3); POTASSIUM - SERUM 3.8 mmol/L (3.5-5.1)
[2019-06-29 07:47] LABS: HEMATOCRIT 32.3 % (42.0-54.0); HEMOGLOBIN 9.8 g/dL (13.5-17.5); MCH 26.7 pg (26.0-34.0); MCHC 30.3 g/dL (31.0-37.0); MEAN PLATELET VOLUME 9.3 fL (7.4-10.4); PLATELET COUNT 186 10x3/uL (130-400); RBC 3.67 10x6/uL (4.20-6.10); RDW 17.3 % (11.5-14.5); WBC 8.1 10x3/uL (4.8-10.8)
[2019-06-29 09:12] VITALS: BP 108/57
[2019-06-29 09:16] LABS: ANISOCYTOSIS OCC; BASOPHILS 2 % (0-2); EOSINOPHILS 32 % (0-7); HYPOCHROMASIA OCC; LYMPHOCYTES 19 % (15-50); MONOCYTES 5 % (2-11); NEUTROPHILS 40 % (40-80); PLATELET ESTIMATE NORMAL
--- NOTE | 2019-06-29 09:58 | NUR ---
PT TAKEN TO MEDICAL IMAGING FOR BARIUM ENEMA, GUARD AT BEDSIDE, NO OTHER NEEDS AT THIS TIME, CONTINUE WITH PLAN OF CARE
--- NOTE | 2019-06-29 13:04 | NUR ---
I have reviewed this patient and I concur with the Shift Assessment completed by the Licensed Practical Nurse today this shift.
[2019-06-29 13:06] VITALS: BP 126/49
[2019-06-29 17:03] VITALS: BP 105/40
--- NOTE | 2019-06-29 19:15 | NUR ---
PATIENT ALERT TO TIME, PLACE, AND SELF. DOES APPEAR TO BE CONFUSED AT TIMES. HAS RIGHT IJ THAT IS SALINE LOCKED AND ADHERED TO SKIN. BLISTERS, SCABS, AND SORES COVER BODY. DENIES PAIN OR DISCOMFORT. CURRENTLY EATING CRACKERS AT THIS TIME. TOLERATING REGULAR DIET AND THIS TIME. CALL LIGHT IN REACH. CPOC.
[2019-06-29 20:00] VITALS: BP 91/39
[2019-06-30] VITALS: BP 102/45
--- NOTE | 2019-06-30 01:52 | NUR ---
RESTING WITH NO SIGNS OR SYMPTOMS OF DISTRESS. CLOSE TO NURSING STATION FOR MONITORING. CPOC.
[2019-06-30 04:00] VITALS: BP 115/80
--- NOTE | 2019-06-30 04:06 | NUR ---
I have reviewed this patient and I concur with the Shift Assessment completed by the Licensed Practical Nurse today this shift.
[2019-06-30 05:28] LABS: BASOPHILS 0.8 % (0-2); EOSINOPHILS 39.2 % (0-7); HEMATOCRIT 31.9 % (42.0-54.0); HEMOGLOBIN 9.7 g/dL (13.5-17.5); IMMATURE GRANULOCYTES 0.1 % (0-5); LYMPHOCYTES 18.4 % (15-50); MCH 26.6 pg (26.0-34.0); MCHC 30.4 g/dL (31.0-37.0); MCV 87.6 fL (80.0-100.0); MEAN PLATELET VOLUME 9.2 fL (7.4-10.4); MONOCYTES 5.5 % (2-11); PLATELET COUNT 157 10x3/uL (130-400); RBC 3.64 10x6/uL (4.20-6.10); RDW 17.5 % (11.5-14.5); WBC 8.5 10x3/uL (4.8-10.8)
[2019-06-30 05:44] LABS: ANION GAP 5.2 mmol/L (8-16); CALCIUM 8.1 mg/dL (8.5-10.1); CARBON DIOXIDE 32.1 mmol/L (21.0-32.0); CREATININE - SERUM 1.4 mg/dL (0.6-1.3); POTASSIUM - SERUM 4.3 mmol/L (3.5-5.1)
[2019-06-30 09:06] VITALS: BP 128/44
--- NOTE | 2019-06-30 10:31 | NUR ---
NUTRITION F/U CHART REVIEWED, PT REMAINS IN ISOLATION. TOLERATING REG DIET WITH GOOD INTAKE RECENT MEALS. WILL CONTINUE TO PROVIDE DIET, MONITOR PO INTAKE. RD FOLLOWING
--- NOTE | 2019-06-30 12:01 | MORECARE ---
CASE MANAGEMENT DISCHARGE SUMMARY PATIENT: NATALIA BARLOW UNIT: [id number] ADM DATE: 06/03/19 AGE: 63 : 53 SEX: M ROOM/BED: D.2222 AUTHOR: LAVELL CORDOBA PHYSICIAN: REFERRING PHYSICIAN: LATANYA JUDD DO DATE OF SERVICE: 06/30/19 Discharge Plan Patient Name: NATALIA BARLOW Facility: [facility]:[place] : 1955 Planned Disposition: Court\Law Enforcement Anticipated Discharge Date: Discharge Date: Expected LOS: Initial Reviewer: [email or web address] Initial Review Date: 06/03/2019 Generated: 06/30/19 1:01 pm Comments DCP- Discharge Planning Updated by [id number]: Darline Barba on 06/30/19 10:[address] PATIENT TO BE DISCHARGED TODAY BACK TO [facility] [place], I HAVE NOTIFIED [facility] WITH [facility]. [facility] WILL SET UP TRANSPORTATION. CM TO ASSIST NEEDED DCP- Discharge Planning Updated by [id number]: Brianne Hanna on 06/03/19 5:[address] Patient Name: NATALIA BARLOW Admission Status: ER Accout number: [id number] Admission Date: 06-03-2019 : 1955 Admission Diagnosis: Attending: LATANYA JUDD Current LOS: 1 Anticipated DC Date: Planned Disposition: Court\Law Enforcement Primary Insurance: [place] [employer] Discharge Planning Comments: PATIENT WILL BE RELEASED BACK TO [place] [facility] WHEN DISCHARGED. GUARD AT BEDSIDE CONTINUALLY. Dye Colorist Formulator: Brianne Hanna DCPIA - Discharge Planning Initial Assessment Updated by [email or web address]: Brianne Hanna on 06/03/19 7:21 pm * Is the patient Alert and Oriented? Yes * PCP [facility] * Pharmacy [facility] * Preadmission Environment Other * Other Environment [facility] * Facility Name [facility] * ADLs Independent * Verbal permission to speak to the caregivers and representatives has been obtained from the patient. N/A * Community resources currently utilized None * Additional services required to return to the preadmission environment? No * Can the patient safely return to the preadmission environment? Yes * Has this patient been hospitalized within the prior 30 days at any hospital? No Last DP export: 2/20/20 5:33 p Patient Name: NATALIA BARLOW Page [phone] at 1201 All edits/amendments must be made on the electronic document DICTATION DATE: 06/30/19 1201 PT SKILLED: RUTHIE 06/30/19 1201 RPT#: [id number] DC DATE: STATUS: ADM IN [facility] [address] [place] [address] END OF REPORT
[2019-06-30] MEDS ORDERED: PROTONIX40 MG PO (12:07)
[2019-06-30] MEDS ORDERED: PROCARDIA XL PO (12:07)
[2019-06-30] MEDS ORDERED: ZYLOPRIM100 MG PO (12:07)
[2019-06-30] MEDS ORDERED: CARAFATE1 G PO (12:07)
[2019-06-30 12:50] VITALS: BP 135/59
--- NOTE | 2019-06-30 13:44 | NUR ---
REPORT CALLED TO [facility] AT THIS TIME. NO QUESTIONS AT THIS TIME.
--- NOTE | 2019-06-30 14:28 | NUR ---
CVL REMOVED AT THIS TIME. PRESSURE HELD WITH NO BLEEDING NOTED. CLEANED AREA AND PLACED DRESSING OVER SITE. PATIENT HAD BM. ALL BARIUM WITH SMALL AMOUNT OF BRIGHT RED BLOOD ON TOP OF BARIUM. NOTIFIED RAMON AND DR. MONTES. VICKIE ORDERED FOR HEMERRHOIDS. WAITING FOR TRANSPORTATION TO BE DC'D. CALL LIGHT WITHIN REACH.
--- NOTE | 2019-06-30 14:32 | MORECARE ---
CASE MANAGEMENT DISCHARGE SUMMARY PATIENT: NATALIA BARLOW UNIT: [id number] ADM DATE: 06/03/19 AGE: 63 : 53 SEX: M ROOM/BED: D.2222 AUTHOR: LAVELL CORDOBA PHYSICIAN: REFERRING PHYSICIAN: LATANYA JUDD DO DATE OF SERVICE: 06/30/19 Discharge Plan Patient Name: NATALIA BARLOW Facility: [facility]:[place] : 1955 Planned Disposition: Court\Law Enforcement Anticipated Discharge Date: Discharge Date: Expected LOS: Initial Reviewer: [email or web address] Initial Review Date: 06/03/2019 Generated: 06/30/19 3:31 pm Comments DCP- Discharge Planning Updated by [id number]: Darline Barba on 06/30/19 10:[address] PATIENT TO BE DISCHARGED TODAY BACK TO [facility], I HAVE NOTIFIED [facility] WITH [facility]. [facility]ARDS WILL SET UP TRANSPORTATION. CM TO ASSIST NEEDED DCP- Discharge Planning Updated by [id number]: Brianne Hanna on 06/03/19 5:[address] Patient Name: NATALIA BARLOW Admission Status: ER Accout number: [id number] Admission Date: 06-03-2019 : 1955 Admission Diagnosis: Attending: LATANYA JUDD Current LOS: 1 Anticipated DC Date: Planned Disposition: Court\Law Enforcement Primary Insurance: [place] [employer] Discharge Planning Comments: PATIENT WILL BE RELEASED BACK TO [place] [facility] WHEN DISCHARGED. GUARD AT BEDSIDE CONTINUALLY. Brush Holder Inspector: Brianne Hanna DCPIA - Discharge Planning Initial Assessment Updated by [id number]: Brianne Hanna on 06/03/19 7:21 pm * Is the patient Alert and Oriented? Yes * PCP [facility] * Pharmacy [facility] * Preadmission Environment Other * Other Environment [facility] * Facility Name [facility] * ADLs Independent * Verbal permission to speak to the caregivers and representatives has been obtained from the patient. N/A * Community resources currently utilized None * Additional services required to return to the preadmission environment? No * Can the patient safely return to the preadmission environment? Yes * Has this patient been hospitalized within the prior 30 days at any hospital? No External Providers External Provider: [facility] Next Contact Date: Service Request Date: Service Type: Resolution: Reviewer: Comments: Last DP export: 06/30/19 11:01 a Patient Name: NATALIA BARLOW Page [phone] at 1432 All edits/amendments must be made on the electronic document DICTATION DATE: 06/30/191430 CANNON CREWMEMBER: RUTHIE 06/30/191430 RPT#: [id number] DC DATE: STATUS: ADM IN [facility] [address] [place] [address] END OF REPORT
--- NOTE | 2019-07-01 08:08 | MORECARE ---
CASE MANAGEMENT DISCHARGE SUMMARY PATIENT: NATALIA BARLOW UNIT: [id number] ADM DATE: 06/03/19 AGE: 63 : 51 SEX: M ROOM/BED: D.2222 AUTHOR: LAVELL CORDOBA PHYSICIAN: REFERRING PHYSICIAN: LATANYA JUDD DO DATE OF SERVICE: 07/01/19 Discharge Plan Patient Name: NATALIA BARLOW Facility: [facility]:[place] : 1955 Planned Disposition: Court\Law Enforcement Anticipated Discharge Date: Discharge Date: 06/30/2019 Expected LOS: Initial Reviewer: [email or web address] Initial Review Date: 06/03/2019 Generated: 07/01/19 9:08 am Comments DCP- Discharge Planning Updated by [id number]: Darline Barba on 06/30/19 10:[address] PATIENT TO BE DISCHARGED TODAY BACK TO [facility], I HAVE NOTIFIED [facility] WITH [facility]. [facility]ARDS WILL SET UP TRANSPORTATION. CM TO ASSIST NEEDED DCP- Discharge Planning Updated by [id number]: Brianne Hanna on 06/03/19 5:[address] Patient Name: NATALIA BARLOW Admission Status: ER Accout number: [id number] Admission Date: 06-03-2019 : 1955 Admission Diagnosis: Attending: LATANYA JUDD Current LOS: 1 Anticipated DC Date: Planned Disposition: Court\Law Enforcement Primary Insurance: [place] [employer] Discharge Planning Comments: PATIENT WILL BE RELEASED BACK TO [place] [facility] WHEN DISCHARGED. GUARD AT BEDSIDE CONTINUALLY. Dock Operator: Brianne Hanna DCPIA - Discharge Planning Initial Assessment Updated by [id number]: Brianne Hanna on 06/03/19 7:21 pm * Is the patient Alert and Oriented? Yes * PCP [facility] * [facility] * Preadmission Environment Other * Other Environment [facility] * Facility Name [facility] * ADLs Independent * Verbal permission to speak to the caregivers and representatives has been obtained from the patient. N/A * Community resources currently utilized None * Additional services required to return to the preadmission environment? No * Can the patient safely return to the preadmission environment? Yes * Has this patient been hospitalized within the prior 30 days at any hospital? No Last DP export: 06/30/19 1:32 p Patient Name: NATALIA BARLOW Page [phone] at 0808 All edits/amendments must be made on the electronic document DICTATION DATE: 07/01/19 0808 GREENHOUSE SUPERINTENDENT: DM 07/01/19 08 RPT#: [id number] DC DATE:06/30/19 STATUS: DIS IN [facility] [address] [place] [address] END OF REPORT
== END 2019-06-30 22:53 | disposition other institution (70) | DRG 377 ==
LOC: D.ER 09:59 → D.MS 11:33 → D.CVICU 11:33 → D.ICU 11:33 → D.CVICU 12:47 → D.ICU 06-09 12:03 → D.MS 06-20 16:15
PROVIDERS: Emergency Medicine; Family Medicine; Internal Medicine; Internal Medicine Nephrology; Internal Medicine Pulmonary Disease; Surgery; ADMIT Family Medicine; ATTEND Family Medicine
PROC: 0DB68ZZ Excision of Stomach, Via Natural or Artificial Opening Endoscopic (ICD-10-PCS; 2019-06-04)
PROC: 0DB78ZX Excision of Stomach, Pylorus, Via Natural or Artificial Opening Endoscopic, Diagnostic (ICD-10-PCS; principal; 2019-06-04 09:00)
PROC: 0BH17EZ Insertion of Endotracheal Airway into Trachea, Via Natural or Artificial Opening (ICD-10-PCS; 2019-06-07)
PROC: 5A1955Z Respiratory Ventilation, Greater than 96 Consecutive Hours (ICD-10-PCS; 2019-06-07)
DX: K29.01 Acute gastritis with bleeding (principal); J69.0 Pneumonitis due to inhalation of food and vomit; N17.0 Acute kidney failure with tubular necrosis; J96.21 Acute and chronic respiratory failure with hypoxia; G93.41 Metabolic encephalopathy; I50.33 Acute on chronic diastolic (congestive) heart failure; J96.02 Acute respiratory failure with hypercapnia; J15.6 Pneumonia due to other Gram-negative bacteria; A41.9 Sepsis, unspecified organism; N17.9 Acute kidney failure, unspecified; D62 Acute posthemorrhagic anemia; J44.1 Chronic obstructive pulmonary disease with (acute) exacerbation; K20.9 Esophagitis, unspecified; K31.7 Polyp of stomach and duodenum; D50.9 Iron deficiency anemia, unspecified; E11.65 Type 2 diabetes mellitus with hyperglycemia; G47.33 Obstructive sleep apnea (adult) (pediatric); K21.9 Gastro-esophageal reflux disease without esophagitis; N40.0 Benign prostatic hyperplasia without lower urinary tract symptoms; I71.4 Abdominal aortic aneurysm, without rupture; K74.60 Unspecified cirrhosis of liver; Z91.19 Patient's noncompliance with other medical treatment and regimen; E66.9 Obesity, unspecified; Z68.31 Body mass index [BMI] 31.0-31.9, adult; I11.0 Hypertensive heart disease with heart failure; E79.0 Hyperuricemia without signs of inflammatory arthritis and tophaceous disease; G89.29 Other chronic pain